=== PATIENT | female | born 1975 | race Caucasian/White ===

== ENCOUNTER 2017-09-09 12:12 | Day surgery (SDC) | payer OTHER ==
[2017-09-08 10:29] VITALS: BMI 20.3
[2017-09-09] MEDS ORDERED: Glycopyrrolate 0.2 MG/ML 5 ML SYRINGE ONE (13:11)
[2017-09-09] MEDS ORDERED: Lidocaine 1% PF 5 ML VIAL ONE (13:11)
[2017-09-09] MEDS ORDERED: Dexamethasone 20 MG/5 ML VIAL ONE (13:11)
[2017-09-09] MEDS ORDERED: PHENYLEPHRINE-NS 100 MCG/ML 10 ML SYRINGE ONE (13:11)
[2017-09-09] MEDS ORDERED: PROPOFOL 200 MG/20 ML VIAL ONE (13:11)
[2017-09-09] MEDS ORDERED: Ondansetron HCl/PF 4 MG/2 ML Vial ONE (13:11)
[2017-09-09] MEDS ORDERED: Ketorolac Tromethamine 30 MG/ML VIAL ONE (13:16)
[2017-09-09] MEDS ORDERED: Midazolam HCl 2 mg/2 ml Vial ONE (13:16)
[2017-09-09] MEDS ORDERED: Bupivacaine/Epinephrine 0.25% 30 ML VIAL ONE ×2 (13:17→15:00)
[2017-09-09 13:25] LABS: #Eosinphils 0.1 thou/uL (0.0-0.7); #Lymphocytes 1.5 thou/uL (1.20-3.40); #Monocytes 0.4 thou/uL (0.11-0.59); #Neutrophils 4.2 thou/uL (1.40-6.50); %Basophils 0.2 % (0.0-1.0); %Eosinophils 1.1 % (0.0-10.0); %Lymphocytes 24.1 % (21.0-51.0); %Neutrophils 67.7 % (42.0-75.0); Hemoglobin 14.8 g/dL (12.0-16.0); Mean Corpuscular HGB CONC 32.1 g/dL (32.0-36.0); Mean Corpuscular Hemoglobin 32.9 pg (27.0-31.0); Mean Platelet Volume 6.2 fL (7.4-10.4); Platelet Count 333 thou/uL (130-400); RBC Distribution Width 12.3 % (11.5-14.5); Red Blood Cell (RBC) Count 4.49 mill/uL (4.20-5.40); White Blood Cell (WBC) Count 6.2 thou/uL (4.8-10.8)
[2017-09-09] MEDS ORDERED: CEFAZOLIN/Water 2 GM/20 ML SYRINGE ONE (13:40)
[2017-09-09 13:43] LABS: Anion Gap 13 mmol/L (10-20); BUN (Urea Nitrogen) 18 mg/dL (7.0-18.7); Calc. Creatinine Clearance 100 mL/min (70-130); Calcium 9.7 mg/dL (7.8-10.44); Carbon Dioxide 27 mmol/L (22-29); Chloride 103 mmol/L (98-107); Estimated GFR-MDRD Greater than 90; Glucose 86 mg/dL (70-105); Potassium 4.6 mmol/L (3.5-5.1); Sodium 138 mmol/L (136-145)
[2017-09-09] MEDS ORDERED: Fentanyl 250 MCG/5 ML VIAL ONE (13:57)
[2017-09-09] MEDS ORDERED: Fentanyl 100 MCG/2 ML VIAL ONE ×2 (16:28→17:07)
[2017-09-09] MEDS ORDERED: Promethazine HCl 25 MG/ML VIAL ONE (16:44)
[2017-09-09] MEDS ORDERED: HYDROcodone/Acetaminophen 5/325 mg Tablet ONE (17:58)
--- NOTE | 2017-09-10 10:26 | OP ---
DATE OF PROCEDURE: 09/09/2017 PREOPERATIVE DIAGNOSIS: Incisional periumbilical ventral hernia. POSTOPERATIVE DIAGNOSIS: Incisional periumbilical ventral hernia. OPERATION PERFORMED: Laparoscopic repair of incisional periumbilical ventral hernia, utilizing an 8 cm Ventralex mesh patch. SURGEON: Michel Vidal M.D. ANESTHESIA: General endotracheal. INDICATIONS: The patient is a 41-year-old white female. She had previously had an umbilical hernia repaired with mesh. She then had a laparoscopic procedure, at which time an antrectomy with Kb-en- Y gastrojejunostomy was performed. She had noted several years after this that she developed a bulge just superior and to the right of her umbilicus at the site of her prior umbilical hernia repair. S he was taken to the operating room at this time for repair of this. It has become progressively pain ful recently. DESCRIPTION OF OPERATION: Informed consent was obtained. The patient was taken to the operating yaron m where general endotracheal anesthesia was obtained with the patient in supine position. Abdomen wa s prepped with ChloraPrep and draped in sterile fashion. Local anesthetic was infiltrated and a 5 mm left mid abdominal incision was created through which a Veress needle was passed into the peritoneal cavity and pneumoperitoneum established using carbon dioxide up to a pressure of 15 mmHg. A 5 mm tr ocar port was passed through this same incision. Laparoscopic camera was passed through this port. Under direct vision, 2 additional ports were placed including a 15 mm left upper quadrant port and a 5 mm left lower quadrant port. Attention was turned to the anterior abdominal wall. There were essentially no adhesions to the ante rior abdominal wall and the hernia was immediately visualized. There was mesh at this location. The hernia appeared to be towards the superior aspect of the mesh and the mesh was rolled up into the de fect. I initially performed a preperitoneal dissection, removing all of the surrounding fat from the underside of the fascia. I removed some of the mesh in doing so. The fascial edges were then caref ully defined. The defect was about 3 cm transversely x 2 cm vertically. This defect was marked exte rnally on the skin. Hemostasis was meticulous using electrocautery. The defect was closed percutaneously using 3 sutures of 0 Ethibond that were placed with a Yoana nee dle. With the tissue fully approximated, an 8 cm Ventralex mesh patch was obtained. Four quadrant s utures of 0 Ethibond were placed and the mesh was moistened and passed into the abdominal cavity. Th e 4 stay sutures were withdrawn through the anterior abdominal wall using a GraNee needle and each wa s secured so as to create a 4 quadrant transfascial fixation. There was excellent coverage over the defect. The patch was then secured around the circumference using the secure strap device. Several straps were placed along the internal aspect of the patch as well. The fascia at the left upper quadrant port site was closed with 0 Vicryl suture using a GraNee needle . There was more bleeding than typical from the mid abdominal port and this was also closed with an 0 Vicryl suture. All ports and instruments were removed under direct vision. Pneumoperitoneum was c arefully evacuated. Quarter percent Marcaine with epinephrine was infiltrated in each port site and skin edges approximated with 4-0 Monocryl subcuticular suture. Dermabond was placed externally. The re were no complications. The patient tolerated the procedure well and was taken to recovery room in stable condition.
== END 2017-09-09 18:20 | disposition home or self-care (01) ==
LOC: SDC 12:12
PROVIDERS: ATTEND Specialist
PROC: 0WUF4JZ Supplement Abdominal Wall with Synthetic Substitute, Percutaneous Endoscopic Approach (ICD-10-PCS; principal; 2017-09-09)
DX: K43.2 Incisional hernia without obstruction or gangrene (principal); G43.909 Migraine, unspecified, not intractable, without status migrainosus; D86.9 Sarcoidosis, unspecified; F41.8 Other specified anxiety disorders; M26.603 Bilateral temporomandibular joint disorder, unspecified; K21.9 Gastro-esophageal reflux disease without esophagitis; Z79.899 Other long term (current) drug therapy; Z88.0 Allergy status to penicillin; Z88.2 Allergy status to sulfonamides; Z91.048 Other nonmedicinal substance allergy status; Z98.0 Intestinal bypass and anastomosis status; Z97.5 Presence of (intrauterine) contraceptive device; Z90.89 Acquired absence of other organs; Z90.49 Acquired absence of other specified parts of digestive tract; Z98.890 Other specified postprocedural states; Z87.11 Personal history of peptic ulcer disease
CPT/HCPCS: 80048; 85025; 96374; C1781; J0131; J1100; J1885; J2001; J2250; J2405; J2550; J2704; J3010

== ENCOUNTER 2018-04-22 08:48 | Outpatient (CLI) | payer OTHER ==
[2018-04-22] MEDS ORDERED: ISOVUE-370 76%-LOCM 1 ML ONE (14:45)
== END 2018-04-22 08:49 | disposition home or self-care (01) ==
LOC: BICCT 08:48
PROVIDERS: ATTEND Internal Medicine Gastroenterology
DX: K91.89 Other postprocedural complications and disorders of digestive system (principal); R10.33 Periumbilical pain
CPT/HCPCS: 74177

== ENCOUNTER 2018-07-18 11:14 | Inpatient (IN) | payer OTHER ==
[2018-07-18] MEDS ORDERED: Ondansetron PF 4 MG/2 ML Vial ONE (13:06)
[2018-07-18] MEDS ORDERED: Pantoprazole 40 MG VIAL ONE (13:06)
[2018-07-18 13:23] LABS: #Eosinphils 0.1 thou/uL (0.0-0.7); #Lymphocytes 1.2 thou/uL (1.20-3.40); #Monocytes 0.5 thou/uL (0.11-0.59); #Neutrophils 3.4 thou/uL (1.40-6.50); %Basophils 0.3 % (0.0-1.0); %Eosinophils 1.3 % (0.0-10.0); %Lymphocytes 23.5 % (21.0-51.0); %Monocytes 9.9 % (0.0-10.0); %Neutrophils 64.9 % (42.0-75.0); Hemoglobin 17.3 g/dL (12.0-16.0); Mean Corpuscular HGB CONC 33.2 g/dL (32.0-36.0); Mean Corpuscular Hemoglobin 31.7 pg (27.0-31.0); Mean Corpuscular Volume 95.3 fL (78.0-98.0); Mean Platelet Volume 6.9 fL (7.4-10.4); Platelet Count 390 thou/uL (130-400); RBC Distribution Width 13.2 % (11.5-14.5); Red Blood Cell (RBC) Count 5.47 mill/uL (4.20-5.40); White Blood Cell (WBC) Count 5.3 thou/uL (4.8-10.8)
[2018-07-18 13:53] LABS: ALT (SGPT) 7 U/L (8-55); AST (SGOT) 11 U/L (5-34); Albumin 4.5 g/dL (3.5-5.0); Alkaline Phosphatase 98 U/L (40-150); Anion Gap 14 mmol/L (10-20); BUN (Urea Nitrogen) 25 mg/dL (7.0-18.7); Bilirubin, Total 0.3 mg/dL (0.2-1.2); Calc. Creatinine Clearance 0 mL/min (70-130); Calcium 9.9 mg/dL (7.8-10.44); Carbon Dioxide 32 mmol/L (22-29); Chloride 98 mmol/L (98-107); Estimated GFR-MDRD 74; Globulin 3.3 g/dL (2.4-3.5); Glucose 104 mg/dL (70-105); Lipase 13 U/L (8-78); Potassium 3.5 mmol/L (3.5-5.1); Protein, Total 7.8 g/dL (6.0-8.3); Sodium 140 mmol/L (136-145)
[2018-07-18 14:35] LABS: Bilirubin Small (Negative); Blood, Urine Negative (Negative); Glucose, Urine (Dipstick) Negative (Negative); Leukocyte Negative (Negative); Nitrite Negative (Negative); Protein, Urine (Dipstick) Negative (Neg-Trace); Urobilinogen 0.2 mg/dL (0.2-1.0); pH, Urine 6.5 (5.0-9.0)
[2018-07-18 14:38] LABS: Clarity Clear (Clear); Specific Gravity, Urine 1.022 (1.002-1.036)
[2018-07-18 14:40] LABS: Pregnancy Test - Urine (BHCG) Negative (Negative); Pregu Control Background? CLEAR/WHITE (CLR/WHITE); Pregu Control Bar Appear? YES (CONTROL BAR); Specific Gravity 1.022 (1.002-1.036)
[2018-07-18] MEDS ORDERED: Iopamidol 370 76% 100 ML VIAL ONE (15:05)
--- NOTE | 2018-07-18 15:34 | CT ---
CT ABDOMEN AND PELVIS WITH IV CONTRAST: HISTORY: Abdominal pain. Cramping. COMPARISON: 04/22/2018 FINDINGS: The lung bases are clear. The liver, spleen, kidneys, adrenal glands, and pancreas are unremarkable. There is a contraceptive device within the uterus. The urinary bladder is decompressed. Lack of oral contrast limits evaluation of the bowel. Postoperative changes of the stomach are again demonstrated. The stomach is now markedly distended and enlarged. It contains fluid, gas, and a sm all amount of particulate matter. It measures up to 9.3 cm in length. Follicles arise from the ovaries. IMPRESSION: Given the increasing distention of the enlarged stomach, gastric outlet obstruction must be of primar y concern. Other findings are stable. POS: TERI
[2018-07-18] MEDS ORDERED: Lidocaine Viscous Sol 2% 15 ml UD Cup ONE (17:49)
[2018-07-18] MEDS ORDERED: Benzocaine 20% Spray 60 ML CAN ONE (17:49)
[2018-07-18] MEDS ORDERED: Promethazine HCl 25 MG/ML VIAL ONE (18:41)
[2018-07-18] MEDS ORDERED: Morphine 2 MG/ML SYRINGE ONE (18:41)
[2018-07-18] MEDS ORDERED: Ondansetron PF 4 MG/2 ML Vial IVP PRN (19:50)
[2018-07-18] MEDS ORDERED: Ondansetron ODT 4 MG TAB SL PRN (19:50)
[2018-07-18] MEDS ORDERED: HYDROcodone/Acetaminophen 5/325 mg Tablet PO PRN ×2 (19:50)
[2018-07-18] MEDS ORDERED: Acetaminophen 325 MG TAB PO PRN (19:50)
[2018-07-18] MEDS: Sodium Chloride 0.9% 1,000 ML IV SCH (20:30)
[2018-07-18 20:52] VITALS: BMI 21.1
[2018-07-18] MEDS ORDERED: diphenhydrAMINE 50 MG/ML VIAL IVP SCH (21:30)
[2018-07-18] MEDS: Ketorolac Tromethamine 30 MG/ML VIAL IVP PRN (21:44)
--- NOTE | 2018-07-19 00:47 | CON ---
DATE OF CONSULTATION: 07/18/2018 CHIEF COMPLAINT: Nausea, vomiting, abdominal pain. HISTORY OF PRESENT ILLNESS: Ms. Puente is a 42-year-old woman who originally presented to GI clinic [facility] in 09/2013 with abdominal pain and nausea and vomiting. She underwent upper endoscopy at that [facility] that showed a pyloric ulcer and pyloric stenosis. Balloon dilation of the pyloric stenosis was pe rformed and she did well for several months after that; however, she presented again in 09/2014 with nausea and vomiting and gastric outlet obstruction. She underwent balloon dilation and then repeat b alloon dilation; however, at this point, the stricture was noted to be very long and a large amount o f retained vegetable matter in the stomach and the stricture tightened immediately back up after ball oon dilation such that even following serial dilation her stomach did not empty. She ultimately unde rwent antrectomy with Kb-en-Y gastrojejunostomy and vagotomy in 09/2014. I did not see her again a fter that until she came back to the office in 03/2018 with epigastric pain, nausea, and vomiting. I n the meantime, she had been diagnosed with an autoimmune disorder and was treated with steroids and Celebrex. She saw Dr. Jose Gonzales over in the [place]. She was changed to leflunomide and hydroxyc hloroquine for treatment of erythema nodosum and rheumatoid arthritis. Her symptoms significantly im proved with the change in her medications from the standpoint of joint pain and erythema nodosum. In the meantime, I performed EGD and colonoscopy in 04/13/2018. The upper endoscopy showed ulceration at the gastrojejunostomy that was inflamed and the scope could not be passed through it. Colonoscopy to the terminal ileum was normal. CT was done with contrast to better define the anatomy at the dusty stomosis and the contrast did pass through without problems. I performed follow up EGD on 05/09/2018 and again the gastric bypass was noted with a moderate size gastric pouch with food debris. There w as marked ulceration in the jejunum on the other side of the gastrojejunostomy. The site was strictu red, but the endoscope could be placed through to the more distal small bowel that appeared completel y normal. She was given again proton pump inhibitor with pantoprazole 40 mg twice daily. She was gi navi a trial of Carafate as well; however, she reports that the Carafate only made her feel worse. Vianca villegas came back to the clinic for followup and she was placed on a liquid diet. Gastrin level was checke d and was normal at less than 10. She does not smoke and has not been a smoker. She has been on no NSAIDs for months. She tested negative for H. pylori previously. Biopsies from the anastomosis show ed ulceration with no specific neoplastic process and no H. pylori and no clear inflammatory bowel di sease. Ms. Puente presented to the emergency room this afternoon with nausea and vomiting and left upper quad rant severe pulling or pressure type pain that radiates up towards her substernal region. This pain started on and has been persistent now and she has been unable to keep anything down orally. PAST MEDICAL HISTORY: 1. Chronic gastric ulcer, ultimately treated surgically, now with recurrent ulcer at the gastrojejun al anastomosis with gastric outlet obstruction. 2. Rheumatoid arthritis. 3. Erythema nodosum. 4. Hypothyroidism. PAST SURGICAL HISTORY: Appendectomy, hernia repair, antrectomy with vagotomy and gastrojejunostomy R oux-en-Y. ALLERGIES: SULFA, PENICILLIN, LATEX. FAMILY HISTORY: Negative for GI malignancy. SOCIAL HISTORY: Rare alcohol, no smoking, no drugs. MEDICATIONS: Prior to admission leflunomide, levothyroxine, pantoprazole 40 mg twice daily, hydroxyc hloroquine, escitalopram, occasional acetaminophen for pain but no NSAIDs. REVIEW OF SYSTEMS: Negative x10 systems reviewed except as stated in history of present illness. PHYSICAL EXAMINATION: GENERAL: She is in no acute distress, alert and oriented x3. HEENT: Eyes have no scleral icterus. OROPHARYNX: Clear, without lesions. NECK: No cervical or supraclavicular lymphadenopathy. NEUROLOGIC: Cranial nerves are grossly intact. LUNGS: Clear to auscultation bilaterally. HEART: Regular rate and rhythm without murmur. ABDOMEN: Soft, tender in the epigastric region without guarding. Bowel sounds are present. EXTREMITIES: No lower extremity edema. IMAGING: She had a CT scan of the abdomen and pelvis in the emergency room that showed a distended s tomach with evidence of gastric outlet obstruction. LABORATORY AND X-RAY FINDINGS: White blood cell count 5.3, hemoglobin is 17.3 up from baseline betwe en 14 and 12, platelets 390, creatinine 0.85, albumin 4.5. IMPRESSION: 1. Gastric outlet obstruction secondary to chronic ulcer at the gastrojejunal anastomosis. She prev iously had antrectomy with vagotomy and gastrojejunostomy with Kb-en-Y due to refractory pyloric ch halle ulcer with gastric outlet obstruction. She has tested negative for H. pylori. She has been of f NSAIDs. She does not smoke and has not been a smoker. Her gastrin level was normal. She presents now with severe dehydration and distended stomach consistent with gastric outlet obstruction. She h as failed to respond to twice daily high dose proton pump inhibitor and Carafate and liquid diet. At this point, I think she will require surgical revision of the gastrojejunostomy anastomosis. 2. History of rheumatoid arthritis and erythema nodosum. She is on leflunomide and hydroxychloroqui ne. Given the chronic ulcers that will not heal with no other source identified. Inflammatory bowel disease of the stomach and proximal small bowel is considered as a possibility. No obvious granulom as were reported by previous histopathology specimens. She had a recent colonoscopy to the terminal ileum which was normal. She has had no evidence of disease distal to the pylorus previously and now to the anastomosis. Certainly, she has an area high risk for anastomotic ulceration; however, still consider inflammatory bowel disease as a possibility. I will send an IBD diagnostic serology to look for other evidence of inflammatory bowel disease; however, this will not rule in or rule out Crohn's as a diagnosis. If she does have findings suggestive of inflammatory bowel disease by Serology; how ever, I would consider treating with an anti-TNF since she is already considered this for treatment o f her rheumatoid arthritis and erythema nodosum anyway. She did have a flare of joint pain just last week, even on her current immunosuppressive regimen. RECOMMENDATIONS: 1. Place NG tube. 2. IV fluids. 3. Consultation with General Surgery. I discussed her case with Dr. Vidal and after decompression of her stomach then the next step will likely be surgical revision of her gastrojejunostomy. 4. I will send serology for IBD diagnostic markers.
[2018-07-19] MEDS: Ketorolac Tromethamine 30 MG/ML VIAL IVP PRN (03:40)
[2018-07-19] MEDS: Sodium Chloride 0.9% 1,000 ML IV SCH (04:00)
[2018-07-19] MEDS ORDERED: Acetaminophen 650 MG Suppository PR PRN (08:21)
[2018-07-19] MEDS ORDERED: Bisacodyl 10 MG SUPP PR PRN (08:21)
[2018-07-19] MEDS ORDERED: hydrALAZINE 20 MG/ML VIAL SLOW IVP PRN (08:23)
[2018-07-19] MEDS ORDERED: Cepastat Lozenges 1 LOZ PO PRN (08:23)
[2018-07-19] MEDS ORDERED: Artificial Tears 18 DROP/0.9 ML EA EYE PRN (08:23)
[2018-07-19] MEDS ORDERED: Eucerin (Mineral Oil/Petrolatum,White) 30 gm Jar TOP PRN (08:23)
[2018-07-19] MEDS ORDERED: Sodium Chloride 0.65% Nasal 44 ML BOT EA NARE PRN (08:23)
[2018-07-19] MEDS ORDERED: Pantoprazole 40 MG VIAL IVP SCH (09:00)
[2018-07-19] MEDS: Acetaminophen 650 MG in Premix Bag 1 BAG IVPB PRN ×3 (09:07→21:51)
--- NOTE | 2018-07-19 09:47 | RAD ---
ABDOMEN ONE VIEW: History: 42-year-old female with history of follow up gastric outlet obstruction. FINDINGS: Extensive post-operative changes are noted. There is some gas within a somewhat dilated stomach. An N G tube has been placed. The tip extends into the stomach. The sidehole is at the GE junction region a nd this could be advanced somewhat to completely allow the sidehole to enter the stomach. There is le ss distention than on the CT of 07-18-18. IMPRESSION: NG tube in place with some persistent dilatation and distention of the stomach, the sidehole is at th e GE junction region and the NG tube could be advanced so that it more completely enters the stomach. Extensive post-operative changes. Continue short term follow up. POS: TERI
[2018-07-19] MEDS: D5 1/2 NS w/20 mEq KCL 1,000 ML IV SCH ×3 (10:35→22:51)
--- NOTE | 2018-07-19 11:17 | HP ---
PRIMARY CARE PHYSICIAN: Dr. Edvin Frausto. REASON FOR ADMISSION: Abdominal pain and gastric outlet obstruction. HISTORY OF PRESENT ILLNESS: This is a 42-year-old female, who has a previous history of gastric bypa ss surgery with Kb-en-Y; operation was done by Dr. Vidal about 5 years ago. Subsequently, her co astere was complicated one time with gastric outlet obstruction, required surgery. Patient has a long history of nausea, vomiting, abdominal pain for about 6 months, but initially symptoms were intermitt ent and patient was trying to manage with dietary modification. For the last 3 weeks, patient's symp toms have gradually progressed and she was instructed to be on clear liquid diet, and now a days even with liquid diet patient is getting abdominal pain, which is epigastric in location, 5/10 in intensi ty, associated with acid reflux as well as nausea and sometimes vomiting. Patient has lost almost 30 pounds weight over the last several years and 12 pound in the last 3 weeks. She denies any melena o r hematochezia. She denies any fever or chills. She denies any UTI symptoms. She denies any headac he or dizziness, but she is feeling weak and exhausted. With this presentation, she came to emergency room yesterday and she had CT abdomen and pelvis, which showed gastric distention and gastric outlet obstruction was a concern. This patient was already ev aluated by Dr. Magana as well as Dr. Vidal and they recommended to put her NG tube and keep her n.p. o. with a clear ice chips only. Overnight, the patient did well. She still has some nausea and some vague discomfort in her epigastric region. She denies any chest pain. She denies any shortness of breath. PAST MEDICAL HISTORY: Chronic gastric ulcer, treated with surgery with gastric bypass and Kb-en-Y; history of gastrojejunal anastomosis with a gastric outlet obstruction, required surgery; rheumatoid arthritis; erythema nodosum; hypothyroidism; migraine. PAST SURGICAL HISTORY: Appendicectomy, hernia repair, antrectomy with vagotomy and gastrojejunostomy with Kb-en-Y, tonsillectomy, bladder sling repair, bunionectomy. PAST PSYCHIATRIC HISTORY: Anxiety and depression. ALLERGIES: SULFA DRUGS, PENICILLIN, and LATEX. FAMILY HISTORY: Patient denies any family history of coronary artery disease, stroke, or cancer. SOCIAL HISTORY: Patient is and lives at home with her . No history of tobacco, alcoh ol, or illicit drug abuse. MEDICATIONS: Lexapro 20 mg p.o. daily, Plaquenil 200 mg p.o. at bedtime, leflunomide 10 mg as direct ed, levothyroxine 25 mcg p.o. daily, Protonix 40 mg p.o. b.i.d., Carafate a.c. and at bedtime. REVIEW OF SYSTEMS: The following complete review of systems was negative, unless otherwise mentioned in the HPI or below: Constitutional: Weight loss or gain, ability to conduct usual activities. Sk in: Rash, itching. Eyes: Double vision, pain. ENT/Mouth: Nose bleeding, neck stiffness, pain, te nderness. Cardiovascular: Palpitations, dyspnea on exertion, orthopnea. Respiratory: Shortness of breath, wheezing, cough, hemoptysis, fever, or night sweats. Gastrointestinal: Poor appetite, abdo omega pain, heartburn, nausea, vomiting, constipation, or diarrhea. Genitourinary: Urgency, frequen cy, dysuria, nocturia. Musculoskeletal: Pain, swelling. Neurologic/Psychiatric: Anxiety, depressi on. Allergy/Immunologic: Skin rash, bleeding tendency. Please see my HPI for pertinent positive an d negative. All other review of systems reviewed and negative except as mentioned in the HPI. EMERGENCY ROOM COURSE: Patient was treated with morphine, Phenergan, and IV fluid, Zofran, and Elsy nix. PHYSICAL EXAMINATION: VITAL SIGNS: On arrival, blood pressure 108/88, pulse 122, respiratory rate of 17, temperature 98.8, saturation 98% on room air. GENERAL: Patient is currently alert, awake, in no obvious acute distress. HEENT: Head: Normocephalic, atraumatic. Eyes: Pupils round, reactive to light. Extraocular muscl e intact. ENT: Oropharynx within normal limits. Moist mucous membranes, no oral lesion. No pharyn geal erythema, no exudate. She has NG tube in place with low intermittent suction. NECK: Supple, no JVD, no thyromegaly, no carotid bruit. LUNGS: Clear to auscultation without any rhonchi or rales. CARDIAC: S1 and S2 regular, tachycardia, no murmur, no gallop, no rub. ABDOMEN: Soft. Epigastric discomfort noted. No peritoneal sign, no guarding, no rigidity, no rebou nd. BACK EXAMINATION: Unremarkable, no CVA tenderness. EXTREMITIES: Upper extremities, passive movement of all joints are normal. Lower extremities, no ed haylee. Good distal pulsation, no calf tenderness. SKIN: No skin rash. HEMATOLOGICAL SYSTEM: No lymphadenopathy. PSYCHIATRIC: Normal affect. NEUROLOGIC: Nonfocal examination. SIGNIFICANT LABORATORY DATA: EKG showing sinus tachycardia. CBC: WBC 5.3, hemoglobin 17.3, platele ts 390. BMP: Sodium 140, potassium 3.5, chloride 98, carbon dioxide 32, anion gap 14, BUN 25, creat inine 0.85, glucose 104, calcium 9.9. LFTs: AST 11, ALT 7, alkaline phosphatase 98, albumin 4.5, li pase 13. Urinalysis unremarkable. test negative. CT of the abdomen and pelvis consistent with a gastric outlet obstruction and gastric distention. X-ray abdomen showing NG tube in place. ASSESSMENT AND PLAN: 1. Nausea, vomiting, abdominal pain in epigastric region due to gastric outlet obstruction. 2. Dehydration. 3. Metabolic alkalosis due to recurrent nausea and vomiting. 4. Anxiety and depression. 5. Rheumatoid arthritis. 6. Hypothyroidism. 7. History of chronic peptic ulcer disease, required a gastrojejunostomy with Kb-en-Y surgery. PLAN: Admission to medical floor. Gastroenterology consult and general surgery consult. We will co ntinue with Protonix 40 mg IV b.i.d. We will continue with dextrose with half normal saline NS at 12 5 mL per hour for hydration. Deep venous thrombosis prophylaxis with Lovenox 40 mg subcutaneously da vineet. Gastrointestinal prophylaxis with Protonix. CODE STATUS: The patient is FULL CODE. Patient's is surrogate decision maker. Disposition plan based on clinical course and career consultant recommendation. At this point, the patient has NG tube with low intermittent suction on ice chips only. Depending up on clinical course, we will advance diet. She may need a surgical evaluation versus endoscopic evalu ation. The patient will stay in hospital more than 2 midnights. Plan of care discussed with the patient in detail.
[2018-07-19] MEDS: Enoxaparin Sodium 40 MG/0.4 ML SYRINGE SC SCH (11:49)
[2018-07-19] MEDS ORDERED: Morphine 2 MG/ML SYRINGE SLOW IVP PRN (12:02)
[2018-07-19] MEDS: Morphine 2 MG/ML SYRINGE SLOW IVP PRN ×2 (12:08→17:52)
[2018-07-19 18:08] LABS: Bilirubin Negative (Negative); Blood, Urine Negative (Negative); Clarity CLEAR (Clear); Glucose, Urine (Dipstick) Negative (Negative); Leukocyte Negative (Negative); Nitrite Negative (Negative); Protein, Urine (Dipstick) Negative (Neg-Trace); Urobilinogen 0.2 mg/dL (0.2-1.0); pH, Urine 5.5 (5.0-9.0)
[2018-07-19 18:10] LABS: Bacteria/HPF None Seen HPF (None Seen); Hyaline Casts/LPF 0-3 HYALINE CAST LPF (0-3 Hyaline); Pathc Cast-AUWi Flag 0.14 (0-2.49); RBC/HPF 0-3 HPF (0-3); WBC/HPF 0-3 HPF (0-3)
[2018-07-19] MEDS: Pantoprazole 40 MG VIAL IVP SCH (20:33)
[2018-07-19] MEDS ORDERED: diphenhydrAMINE 50 MG/ML VIAL IVP SCH (21:30)
[2018-07-19] MEDS: Ondansetron PF 4 MG/2 ML Vial IVP PRN (22:49)
--- NOTE | 2018-07-20 01:07 | PRG ---
DATE OF SERVICE: 07/19/2018 SUBJECTIVE: Kwame feels better after having the NG tube decompress her stomach. She had a large vol ume of fluid removed immediately upon placement. Now, she is uncomfortable with the NG tube, but she has no abdominal pain currently. She has been taking Tylenol IV and morphine for pain in general. OBJECTIVE: VITAL SIGNS: Temperature 99.1, pulse 92, blood pressure 124/61. GENERAL: She is in no acute distress. She does appear uncomfortable with NG tube in place. LUNGS: Clear to auscultation bilaterally. HEART: Regular rate and rhythm. ABDOMEN: Soft, nontender, nondistended. Bowel sounds are present. EXTREMITIES: No lower extremity edema. IMPRESSION: Gastric outlet obstruction secondary to peptic ulcer at the gastrojejunostomy anastomosi s, but more so on the small bowel side of the anastomosis. RECOMMENDATIONS: 1. She has an NG tube in place to low intermittent suction. 2. Plan is for surgical revision of the anastomosis on .
--- NOTE | 2018-07-20 02:11 | CON ---
DATE OF CONSULTATION: 07/19/2018 CHIEF COMPLAINT: Gastric outlet obstruction with nausea and vomiting. HISTORY OF PRESENT ILLNESS: The patient is a 42-year-old pleasant white female. In 09/2014, I perfo rmed a laparoscopic distal gastrectomy with Kb-en-Y gastrojejunostomy. I also performed a truncal vagotomy at that time. She had gastric outlet obstruction secondary to pyloric scarring from peptic ulcer disease. She did well after the surgery and has had no subsequent gastric problems for couple of years. She had a flare up of an autoimmune disease for which she was placed on significant doses of steroids and nonsteroidal medications. At that point, she began having recurrent problems with he r stomach. She and her note that over the past 6 months that she has had intermittent proble ms with nausea, vomiting, and abdominal pain. She has undergone few endoscopies per Dr. Magana. She is noted to have recurrent problems with ulceration, stenosis at her gastrojejunostomy. Gastrin leve ls were checked and found to be essentially normal. She presented to the emergency room yesterday with worsened problems with pain and nausea and vomitin g. She and her both note that her quality of life over the past several months has been very poor. CT scan obtained in the emergency room document, substantial gastric distention with no other intra-abdominal abnormality. PAST MEDICAL HISTORY: 1. History of gastric outlet obstruction. 2. Rheumatoid arthritis. 3. Erythema nodosum. 4. Hypothyroidism. 5. History of migraine headaches. PAST SURGICAL HISTORY: 1. Appendectomy. 2. Umbilical hernia repair 3. Antrectomy with vagotomy and gastrojejunostomy in 2014. 4. Tonsillectomy. 5. Bladder sling repair. 6. Bunionectomy. 7. Laparoscopic ventral hernia repair that I performed last year. ALLERGIES: SULFA DRUGS, PENICILLIN, LATEX. PERSONAL AND SOCIAL HISTORY: She is with 2 children. She is a teacher. She lives in [facility]. She denies tobacco or alcohol use. MEDICATIONS: Lexapro, Plaquenil, leflunomide, levothyroxine, Protonix, Carafate. REVIEW OF SYSTEMS: Otherwise, unremarkable. FAMILY HISTORY: Noncontributory. PHYSICAL EXAMINATION: VITAL SIGNS: She is afebrile with tachycardia upon arrival with a heart rate of 122. Her tachycardi a is largely resolved with heart rate in the 80s. Blood pressure is within normal limits. GENERAL: She is a well-developed, well-nourished, thin white female resting in bed in no acute distr ess. She is alert and oriented x3. HEAD, EYES, EARS, NOSE AND THROAT: Unremarkable. NECK: Supple, without mass or tenderness. LUNGS: Clear to auscultation throughout. CARDIAC: Regular rate and rhythm without murmur. ABDOMEN: Soft, nontender, nondistended with well healed incisions from prior surgery. EXTREMITIES: Unremarkable. LABORATORY DATA: CBC reveals white blood cell count of 5.3, hemoglobin of 17.3. Chemistry profile r eveals no significant electrolyte abnormality. Her CO2 is little elevated at 32, BUN and creatinine are normal. Albumin level is 4.5. ASSESSMENT: The patient with substantial gastric outlet obstruction with a very distended stomach. At last surgery, her stomach was very thickened secondary to the chronic obstruction. For now, there fore, recommend placement of nasogastric tube allow the stomach to decompress for about [address] 48 hours of decompression, I believe her stomach will be well suited to repeat operation. I will plan on revising her gastrojejunostomy laparoscopic cholecystectomy. I discussed this operation wit h the patient and her . They understand and agree to proceed with surgery.
[2018-07-20 05:59] LABS: #Eosinphils 0.2 thou/uL (0.0-0.7); #Monocytes 0.5 thou/uL (0.11-0.59); %Basophils 0.6 % (0.0-1.0); %Eosinophils 3.5 % (0.0-10.0); %Lymphocytes 17.7 % (21.0-51.0); %Monocytes 8.9 % (0.0-10.0); %Neutrophils 69.4 % (42.0-75.0); Hemoglobin 12.5 g/dL (12.0-16.0); Mean Corpuscular HGB CONC 31.9 g/dL (32.0-36.0); Mean Corpuscular Hemoglobin 30.8 pg (27.0-31.0); Mean Corpuscular Volume 96.4 fL (78.0-98.0); Mean Platelet Volume 6.8 fL (7.4-10.4); Platelet Count 277 thou/uL (130-400); RBC Distribution Width 12.9 % (11.5-14.5); Red Blood Cell (RBC) Count 4.07 mill/uL (4.20-5.40); White Blood Cell (WBC) Count 5.7 thou/uL (4.8-10.8)
[2018-07-20] MEDS: D5 1/2 NS w/20 mEq KCL 1,000 ML IV SCH ×3 (06:04→20:12)
[2018-07-20 07:10] LABS: ALT (SGPT) Less than 7 U/L (8-55); AST (SGOT) 11 U/L (5-34); Albumin 3.2 g/dL (3.5-5.0); Alkaline Phosphatase 68 U/L (40-150); Anion Gap 9 mmol/L (10-20); BUN (Urea Nitrogen) 11 mg/dL (7.0-18.7); Bilirubin, Total 0.3 mg/dL (0.2-1.2); Calc. Creatinine Clearance 101 mL/min (70-130); Calcium 8.4 mg/dL (7.8-10.44); Carbon Dioxide 23 mmol/L (22-29); Chloride 108 mmol/L (98-107); Estimated GFR-MDRD Greater than 90; Globulin 2.3 g/dL (2.4-3.5); Glucose 107 mg/dL (70-105); Potassium 3.7 mmol/L (3.5-5.1); Protein, Total 5.5 g/dL (6.0-8.3); Sodium 136 mmol/L (136-145)
[2018-07-20] MEDS ORDERED: Lidocaine 2% Jelly 5 ML TUBE TOP SCH (09:00)
[2018-07-20] MEDS: Enoxaparin Sodium 40 MG/0.4 ML SYRINGE SC SCH (09:40)
--- NOTE | 2018-07-20 10:07 | PDOC.PN ---
- Subjective Encounter Start Date: 07/20/18 Encounter Start Time: 08:30 Patient seen and examined. No new complaints. No overnight events today NG tube came out - Objective Resuscitation Status: Resuscitation Status FULL:Full Resuscitation MAR Reviewed: Yes Vital Signs & Weight: Vital Signs (12 hours) Temp Pulse Resp BP Pulse Ox 07/20/18 08:48 98.1 F 95 16 109/63 99 07/20/18 05:00 98.3 F 84 18 121/68 07/20/18 00:59 98.1 F 87 18 105/58 L Weight Admit Weight 126 lb 12.253 oz Weight 126 lb 12.253 oz I&O: 07/19/18 07/20/18 07/21/18 06:59 06:59 06:59 Intake Total 1192 1228 Output Total 375 1200 Balance 817 28 Result Diagrams: 07/20/18 05:31 07/20/18 05:31 Phys Exam - Physical Examination Constitutional: NAD HEENT: PERRLA, moist MMs, sclera anicteric Neck: no JVD, supple Respiratory: no wheezing, no rales, no rhonchi Cardiovascular: RRR, no significant murmur, no rub Gastrointestinal: soft, no distention, positive bowel sounds epigastric discomfort Musculoskeletal: no edema, pulses present Neurological: non-focal, normal sensation, moves all 4 limbs Psychiatric: normal affect, A&O x 3 Skin: no rash, normal turgor Dx/Plan (1) Dehydration Code(s): E86.0 - DEHYDRATION Status: Acute (2) Epigastric abdominal pain Code(s): R10.13 - EPIGASTRIC PAIN Status: Acute (3) Gastric distention Code(s): K31.89 - OTHER DISEASES OF STOMACH AND DUODENUM Status: Acute (4) Gastric outlet obstruction Code(s): K31.1 - ADULT HYPERTROPHIC PYLORIC STENOSIS Status: Acute (5) Metabolic alkalosis Code(s): E87.3 - ALKALOSIS Status: Acute (6) Nausea & vomiting Code(s): R11.2 - NAUSEA WITH VOMITING, UNSPECIFIED Status: Acute (7) Anxiety and depression Code(s): F41.9 - ANXIETY DISORDER, UNSPECIFIED; F32.9 - MAJOR DEPRESSIVE DISORDER, SINGLE EPISODE, UNSPECIFIED Status: Chronic (8) Chronic low back pain Code(s): M54.5 - LOW BACK PAIN; G89.29 - OTHER CHRONIC PAIN Status: Chronic (9) H/O gastric bypass Code(s): Z98.84 - BARIATRIC SURGERY STATUS Status: Chronic (10) H/O peptic ulcer Code(s): Z87.11 - PERSONAL HISTORY OF PEPTIC ULCER DISEASE Status: Chronic (11) Hypothyroidism Code(s): E03.9 - HYPOTHYROIDISM, UNSPECIFIED Status: Chronic (12) Rheumatoid arthritis Code(s): M06.9 - RHEUMATOID ARTHRITIS, UNSPECIFIED Status: Chronic - Plan cont current plan of care * she will need repeat NG tube placement and then LIS * tomorrow she is planned for surgery * continue IVF * medication reviewed as below * symptomatic treatment. Review of Systems - Review of Systems ENT: negative: Ear Pain, Ear Discharge, Nose Pain, Nose Discharge, Nose Congestion, Mouth Pain, Mouth Swelling, Throat Pain, Throat Swelling, Other Respiratory: negative: Cough, Dry, Shortness of Breath, Hemoptysis, SOB with Excertion, Pleuritic Pain, Sputum, Wheezing Cardiovascular: negative: chest pain, palpitations, orthopnea, paroxysmal nocturnal dyspnea, edema, light headedness, other Gastrointestinal: Nausea, Abdominal Pain. negative: Vomiting, Diarrhea, Constipation, Melena, Hematochezia, Other Genitourinary: negative: Dysuria, Frequency, Incontinence, Hematuria, Retention , Other Musculoskeletal: negative: Neck Pain, Shoulder Pain, Arm Pain, Back Pain, Hand Pain, Leg Pain, Foot Pain, Other Skin: negative: Rash, Lesions, Jez, Bruising, Other - Medications/Allergies Allergies/Adverse Reactions: Allergies Allergy/AdvReac Type Severity Reaction Status Date / Time adhesive tape Allergy Verified 09/08/17 10:32 Penicillins Allergy Verified 09/08/17 10:32 Sulfa (Sulfonamide Allergy Verified 09/08/17 10:32 Antibiotics) Medications: Current Medications Acetaminophen (Tylenol) 650 mg NM Q4H PRN PRN Reason: Headache/Fever/Mild Pain (1-3) Artificial Tears (Tears Naturale) 2 drop EA EYE PRN PRN PRN Reason: Dry Eyes Bisacodyl (Dulcolax) 10 mg [place] DAILYPRN PRN PRN Reason: Constipation Enoxaparin Sodium (Lovenox) 40 mg SC 0900 [facility] Last Admin: 07/19/18 11:49 Dose: 40 mg Hydralazine HCl (Apresoline) 10 mg SLOW IVP Q4H PRN PRN Reason: SBP Greater Than 170 Potassium Chloride/Dextrose/Sod Cl (D5 1/2 Ns W/20 Meq Kcl) 1,000 mls @ 125 mls /hr IV .Q8H [facility] Last Admin: 07/20/18 06:04 Dose: 1,000 mls Acetaminophen 650 mg/ Device 65 mls @ 260 mls/hr IVPB Q6H PRN PRN Reason: Fever/Mild Pain Stop: 07/20/18 22:56 Mineral Oil/White Petrolatum (Eucerin Cream) 0 gm TOP BIDPRN PRN PRN Reason: Dry Skin Morphine Sulfate (Morphine) 2 mg SLOW IVP Q4H PRN PRN Reason: Moderate Pain (4-6) Last Admin: 07/19/18 17:52 Dose: 2 mg Ondansetron HCl (Zofran) 4 mg IVP Q6H PRN PRN Reason: Nausea/Vomiting Last Admin: 07/19/18 22:49 Dose: 4 mg Pantoprazole Sodium (Protonix) 40 mg IVP Q12HR [facility] Last Admin: 07/19/18 20:33 Dose: 40 mg Sodium Chloride (Flush - Normal Saline) 10 ml IVF Q12HR [facility] Last Admin: 07/19/18 20:33 Dose: 10 ml Sodium Chloride (Flush - Normal Saline) 10 ml IVF PRN PRN PRN Reason: Saline Flush Sodium Chloride ([place] Nasal [place] 0.65%) 0 ml EA NARE QIDPRN PRN PRN Reason: Nasal Congestion Throat Lozenges (Cepastat Lozenges) 1 zaida PO Q2H PRN PRN Reason: Sore Throat
[2018-07-20] MEDS: Pantoprazole 40 MG VIAL IVP SCH ×2 (10:17→20:12)
[2018-07-20] MEDS ORDERED: Benzocaine 20% Spray 60 ML CAN PO SCH (11:00)
--- NOTE | 2018-07-20 11:40 | PQF ---
MONO MCCRAY, NORRIS PLUMMER MD [id number] [address] [place] [address] [id number] CLINICAL DOCUMENTATION IMPROVEMENT CLARIFICATION FORM: ICD-10 Updated PLEASE DO AN ADDENDUM TO THE PROGRESS NOTE WITH ANY DOCUMENTATION UPDATES OR ADDITIONS AND CARRY THROUGH TO DC SUMMARY. THANK YOU. Date: 07-20-18 ATTN: DR. TORIBIO Please exercise your independent, professional judgment in responding to the clarification form. Clinical indicators are provided on the bottom of this form for your review Please check appropriate box(s): [ X ] Protein Calorie Malnutrition: [ X ] Mild [ ] Moderate [ ] Other Malnutrition (please specify) __ [ ] Underweight without malnutrition [ ] Other diagnosis [ ] Unable to determine CLINICAL INDICATORS - SIGNS / SYMPTOMS / LABS BMI 21.1 H&P (MALU): LOST ALMOST 30 LBS OVER THE LAST SEVERAL YEARS AND 12 LBS IN THE LAST 3 WEEKS LONG HX OF NAUSEA, VOMITING, ABD PAIN FOR 6 MONTHS 07-19 DIETARY CONSULT: GASTRIC OUTLET OBSTRUCTION patient following a clear liquid diet x2 weeks EXCELLENCE CONSULTANT, no PO intake x5 days, 9% weight loss in 2 weeks RISK FACTORS H&P (MALU): HX GASTRIC BYPASS SURGERY W/ YASMINE-EN-Y GASTRIC OUTLET OBSTRUCTION LONG HX OF NAUSEA, VOMITING, ABD PAIN FOR 6 MONTHS TREATMENT: 07-19 DIETARY CONSULT: 1. Continue NPO status 2. Recommend initiating a custom TPN of D30 (850 mL) + AA15 (400 mL) + 20% Lipids (200 mL), infusing entire bag over 24 hours 3. D/C D5 once TPN is at goal 4. Increase AA15 to 575 mL after surgery 4. When medically appropriate, recommend a ADAT to a Fiber Restricted diet Moderate Malnutrition (in acute illness) Energy Intake: <75% of estimated energy requirement for > 7 days Weight Loss: 1-2%/1 week; 5%/ 1 month; 7.5%/3 months Other: mild body fat loss; mild muscle mass loss; mild fluid accumulation; Severe Malnutrition (in acute illness) Energy Intake: < 50% of estimated energy requirement for > 5 days Weight Loss: >1-2%/1 week; >5%/1 month; >7.5%/3 months Other: moderate body fat loss; moderate muscle mass loss; moderate- severe fluid accumulation; measurably reduced cupola operator strength Moderate Malnutrition (in chronic illness) Energy Intake: <75% of estimated energy requirement for >1 month Weight Loss: 5%/1 month; 7.5%/3 months; 10%/6 months; 20%/1 year Other: mild body fat loss; mild muscle mass loss; mild fluid accumulation Severe Malnutrition (in chronic illness) Energy Intake: <75% of estimated energy requirement for >1 month Weight Loss: >5%/1 month; >7.5%/3 months; >10%/6 months; >20%/1 year Other: severe body fat loss; severe muscle mass loss; severe fluid accumulation ; measurably reduced cupola operator strength THANK YOU, ZENAIDA (This form is maintained as a part of the permanent medical record) 2014 [employer]. All Rights Reserved Zenaida Brown RN, BS [email or web address] [facility]
[2018-07-20] MEDS: Morphine 2 MG/ML SYRINGE SLOW IVP PRN ×4 (12:00→23:09)
[2018-07-20] MEDS: Acetaminophen 650 MG in Premix Bag 1 BAG IVPB PRN ×2 (12:18→18:40)
[2018-07-20] MEDS: Ondansetron PF 4 MG/2 ML Vial IVP PRN (12:25)
[2018-07-20 12:35] LABS: Ref Lab Test Ordered IBD; Reference Lab Name PROMETHEUS
--- NOTE | 2018-07-20 19:06 | PRG ---
DATE OF SERVICE: 07/20/2018 SUBJECTIVE: Ms. Puente is uncomfortable from her NG tube. She did have a few 100 mL out from her NG tube, but most of this was fluid used to flush the tube. She has not had ongoing pain in her abdomen or vomiting with the tube in place. OBJECTIVE: VITAL SIGNS: Temperature 98.3, pulse 89, blood pressure 143/87. GENERAL: She is in no acute distress. She is awake and alert. LUNGS: Clear to auscultation bilaterally. HEART: Regular rate and rhythm. ABDOMEN: Soft, nontender, nondistended. Bowel sounds are present. EXTREMITIES: No lower extremity edema. IMPRESSION: 1. 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 2. Severe dehydration, improved with fluids. Her hemoglobin has decreased from 17.3-12.5. PLAN: 1. She remains on NG suction and we will proceed with surgical revision of her anastomosis tomorrow by Dr. Vidal. 2. [email or web address] were sent and are pending. She does have a history of erythema no dosum and rheumatoid arthritis and has been on immunosuppression for that. If the genetic and antibi otic markers came back suggestive of a higher probability of Crohn's, then I would treat her with a b iologic.
--- NOTE | 2018-07-20 19:19 | RAD ---
AP ABDOMINAL RADIOGRAPH 07/20/18 HISTORY: Evaluate nasogastric tube placement. COMPARISON: 07/19/18. FINDINGS: There has been interval placement of a nasogastric tube with tip overlying the expected location of t he proximal body of the stomach. Radiopaque suture material and surgical clips again overlie the left abdomen. Bowel gas pattern is nonspecific. The visualized lung bases are clear. No other interval ch nara from prior study. The lower pelvis is not imaged. No other interval change. IMPRESSION: 1. Interval placement of nasogastric tube with tip overlying the expected location of the proxim al body of the stomach. 2. Postsurgical changes of the abdomen. POS: JOSIAHC
[2018-07-20] MEDS: Oxymetazoline HCl 0.05% ( 15 ML ) NASAL SCH (20:12)
[2018-07-20] MEDS ORDERED: diphenhydrAMINE 50 MG/ML VIAL IVP PRN (23:32)
[2018-07-20] MEDS ORDERED: Acetaminophen 650 MG in Premix Bag 1 BAG IVPB PRN (23:35)
[2018-07-21] MEDS: D5 1/2 NS w/20 mEq KCL 1,000 ML IV SCH ×2 (00:48→08:22)
[2018-07-21] MEDS: Morphine 2 MG/ML SYRINGE SLOW IVP PRN ×4 (02:06→10:14)
[2018-07-21 06:00] LABS: Band 3 % (5-11); Eosinophils 4 % (0-10); Hemoglobin 14.1 g/dL (12.0-16.0); Lymphocytes 24 % (21-51); MDiff Complete? YES; Mean Corpuscular HGB CONC 32.4 g/dL (32.0-36.0); Mean Corpuscular Hemoglobin 31.2 pg (27.0-31.0); Mean Corpuscular Volume 96.2 fL (78.0-98.0); Mean Platelet Volume 7.2 fL (7.4-10.4); Monocytes 8 % (0-10); Neutrophil 54 % (42-75); PLT Morphology Comment Appears Adequate; Platelet Count 295 thou/uL (130-400); RBC Morphology Normal; Reactive Lymphocytes 7 % (0-10); Red Blood Cell (RBC) Count 4.52 mill/uL (4.20-5.40); White Blood Cell (WBC) Count 4.8 thou/uL (4.8-10.8)
[2018-07-21] MEDS ORDERED: Ketorolac Tromethamine 30 MG/ML VIAL IVP SCH (06:00)
[2018-07-21] MEDS ORDERED: Acetaminophen 1,000 MG in Premix Bag 1 BAG IVPB SCH (06:00)
[2018-07-21] MEDS ORDERED: cefOXitin 2 GM in Sodium Chloride 0.9% 100 ML IVPB SCH (06:00)
[2018-07-21 06:22] LABS: Anion Gap 9 mmol/L (10-20); BUN (Urea Nitrogen) Less than 4 mg/dL (7.0-18.7); Calc. Creatinine Clearance 97 mL/min (70-130); Calcium 8.8 mg/dL (7.8-10.44); Carbon Dioxide 26 mmol/L (22-29); Chloride 106 mmol/L (98-107); Estimated GFR-MDRD Greater than 90; Glucose 102 mg/dL (70-105); Potassium 3.7 mmol/L (3.5-5.1); Sodium 137 mmol/L (136-145)
[2018-07-21] MEDS: Pantoprazole 40 MG VIAL IVP SCH ×2 (08:12→21:50)
[2018-07-21] MEDS ORDERED: PHENYLEPHRINE-NS 100 MCG/ML 10 ML SYRINGE ONE (09:47)
[2018-07-21] MEDS ORDERED: Lidocaine 1% PF 5 ML VIAL ONE (09:47)
[2018-07-21] MEDS ORDERED: Succinylcholine Chloride 20 MG/ML 10 ml SYRINGE FS ONE (09:47)
[2018-07-21] MEDS ORDERED: Esmolol 100 MG/10 ML VIAL ONE (09:47)
[2018-07-21] MEDS ORDERED: PROPOFOL 200 MG/20 ML VIAL ONE (09:47)
[2018-07-21] MEDS ORDERED: Dexamethasone 20 MG/5 ML VIAL ONE (09:47)
--- NOTE | 2018-07-21 09:55 | PDOC.PN ---
- Subjective Encounter Start Date: 07/21/18 Encounter Start Time: 07:35 Patient seen and examined. No new complaints. No overnight events - Objective Resuscitation Status: Resuscitation Status FULL:Full Resuscitation MAR Reviewed: Yes Vital Signs & Weight: Vital Signs (12 hours) Temp Pulse Resp BP Pulse Ox 07/21/18 07:19 97.5 F L 76 18 134/83 100 07/21/18 04:05 97.5 F L 74 19 130/86 98 07/21/18 01:04 97.6 F 82 22 H 146/93 H 97 Weight Admit Weight 126 lb 12.253 oz Weight 126 lb 12.253 oz I&O: 07/20/18 07/21/18 07/22/18 06:59 06:59 06:59 Intake Total 1228 1660 Output Total 1200 560 Balance 28 1100 Result Diagrams: 07/21/18 04:59 07/21/18 04:59 Phys Exam - Physical Examination Constitutional: NAD HEENT: PERRLA, moist MMs, sclera anicteric NG tube with LIS Neck: no JVD, supple Respiratory: no wheezing, no rales, no rhonchi Cardiovascular: RRR, no significant murmur, no rub Gastrointestinal: soft, non-tender, no distention, positive bowel sounds Musculoskeletal: no edema, pulses present Neurological: non-focal, normal sensation, moves all 4 limbs Psychiatric: normal affect, A&O x 3 Skin: no rash, normal turgor Dx/Plan (1) Epigastric abdominal pain Code(s): R10.13 - EPIGASTRIC PAIN Status: Acute (2) Gastric distention Code(s): K31.89 - OTHER DISEASES OF STOMACH AND DUODENUM Status: Acute (3) Gastric outlet obstruction Code(s): K31.1 - ADULT HYPERTROPHIC PYLORIC STENOSIS Status: Acute (4) Dehydration Code(s): E86.0 - DEHYDRATION Status: Resolved (5) Metabolic alkalosis Code(s): E87.3 - ALKALOSIS Status: Acute (6) Nausea & vomiting Code(s): R11.2 - NAUSEA WITH VOMITING, UNSPECIFIED Status: Resolved (7) Anxiety and depression Code(s): F41.9 - ANXIETY DISORDER, UNSPECIFIED; F32.9 - MAJOR DEPRESSIVE DISORDER, SINGLE EPISODE, UNSPECIFIED Status: Chronic (8) Chronic low back pain Code(s): M54.5 - LOW BACK PAIN; G89.29 - OTHER CHRONIC PAIN Status: Chronic (9) H/O gastric bypass Code(s): Z98.84 - BARIATRIC SURGERY STATUS Status: Chronic (10) H/O peptic ulcer Code(s): Z87.11 - PERSONAL HISTORY OF PEPTIC ULCER DISEASE Status: Chronic (11) Hypothyroidism Code(s): E03.9 - HYPOTHYROIDISM, UNSPECIFIED Status: Chronic (12) Rheumatoid arthritis Code(s): M06.9 - RHEUMATOID ARTHRITIS, UNSPECIFIED Status: Chronic - Plan cont current plan of care, plan discussed w/ family * medication reviewed as below * symptomatic treatment * today afternoon plan for surgery * discussed with bedside * continue NG tube with LIS * continue IVF. Review of Systems - Review of Systems ENT: negative: Ear Pain, Ear Discharge, Nose Pain, Nose Discharge, Nose Congestion, Mouth Pain, Mouth Swelling, Throat Pain, Throat Swelling, Other Respiratory: negative: Cough, Dry, Shortness of Breath, Hemoptysis, SOB with Excertion, Pleuritic Pain, Sputum, Wheezing Cardiovascular: negative: chest pain, palpitations, orthopnea, paroxysmal nocturnal dyspnea, edema, light headedness, other Gastrointestinal: negative: Nausea, Vomiting, Abdominal Pain, Diarrhea, Constipation, Melena, Hematochezia, Other Genitourinary: negative: Dysuria, Frequency, Incontinence, Hematuria, Retention , Other Musculoskeletal: negative: Neck Pain, Shoulder Pain, Arm Pain, Back Pain, Hand Pain, Leg Pain, Foot Pain, Other - Medications/Allergies Allergies/Adverse Reactions: Allergies Allergy/AdvReac Type Severity Reaction Status Date / Time adhesive tape Allergy Verified 09/08/17 10:32 Penicillins Allergy Verified 09/08/17 10:32 Sulfa (Sulfonamide Allergy Verified 09/08/17 10:32 Antibiotics) Medications: Current Medications Acetaminophen (Tylenol) 650 mg [place] Q4H PRN PRN Reason: Headache/Fever/Mild Pain (1-3) Artificial Tears (Tears Naturale) 2 drop EA EYE PRN PRN PRN Reason: Dry Eyes Bisacodyl (Dulcolax) 10 mg [place] DAILYPRN PRN PRN Reason: Constipation Diphenhydramine HCl (Benadryl) 12.5 mg IVP ONE PRN PRN Reason: Itching Stop: 07/21/18 23:33 Enoxaparin Sodium (Lovenox) 40 mg SC 0900 [facility] Last Admin: 07/20/18 09:40 Dose: 40 mg Hydralazine HCl (Apresoline) 10 mg SLOW IVP Q4H PRN PRN Reason: SBP Greater Than 170 Potassium Chloride/Dextrose/Sod Cl (D5 1/2 Ns W/20 Meq Kcl) 1,000 mls @ 125 mls /hr IV .Q8H [facility] Last Admin: 07/21/18 08:22 Dose: 1,000 mls Acetaminophen 1,000 mg/ Device 100 mls @ 400 mls/hr IVPB ONCALL-OR MIKE Stop: 07/21/18 15:00 Cefoxitin Sodium 2 gm/ Sodium (Chloride) 100 mls @ 100 mls/hr IVPB ONCALL-OR MIKE Stop: 07/21/18 15:00 Acetaminophen 650 mg/ Device 65 mls @ 400 mls/hr IVPB Q6H PRN PRN Reason: PAIN 1-3 Stop: 07/21/18 23:36 Last Admin: 07/21/18 00:53 Dose: 65 mls Ketorolac Tromethamine (Toradol) 30 mg IVP ONCALL-OR MIKE Stop: 07/21/18 15:00 Mineral Oil/White Petrolatum (Eucerin Cream) 0 gm TOP BIDPRN PRN PRN Reason: Dry Skin Morphine Sulfate (Morphine) 2 mg SLOW IVP Q2H PRN PRN Reason: Pain Last Admin: 07/21/18 08:12 Dose: 2 mg Ondansetron HCl (Zofran) 4 mg IVP Q6H PRN PRN Reason: Nausea/Vomiting Last Admin: 07/20/18 12:25 Dose: 4 mg Oxymetazoline HCl (Oxymetazoline Hcl) 2 sprays NASAL BID [facility] Last Admin: 07/20/18 20:12 Dose: Not Given Pantoprazole Sodium (Protonix) 40 mg IVP Q12HR [facility] Last Admin: 07/21/18 08:12 Dose: 40 mg Sodium Chloride (Flush - Normal Saline) 10 ml IVF Q12HR [facility] Last Admin: 07/20/18 20:12 Dose: 10 ml Sodium Chloride (Flush - Normal Saline) 10 ml IVF PRN PRN PRN Reason: Saline Flush Sodium Chloride ([place] Nasal [place] 0.65%) 0 ml EA NARE QIDPRN PRN PRN Reason: Nasal Congestion Throat Lozenges (Cepastat Lozenges) 1 zaida PO Q2H PRN PRN Reason: Sore Throat
[2018-07-21] MEDS: Oxymetazoline HCl 0.05% ( 15 ML ) NASAL SCH (10:17)
[2018-07-21] MEDS: Enoxaparin Sodium 40 MG/0.4 ML SYRINGE SC SCH (11:41)
[2018-07-21] MEDS ORDERED: Ketorolac Tromethamine 30 MG/ML VIAL ONE (11:49)
[2018-07-21] MEDS ORDERED: Fentanyl 100 MCG/2 ML VIAL ONE ×2 (12:31→16:20)
[2018-07-21] MEDS ORDERED: Bupivacaine/Epinephrine 0.25% 30 ML VIAL ONE ×2 (12:32→12:44)
[2018-07-21] MEDS ORDERED: Promethazine HCl 25 MG/ML VIAL IM PRN (12:55)
[2018-07-21] MEDS ORDERED: Promethazine HCl 25 MG/ML VIAL SLOW IVP PRN (12:55)
[2018-07-21] MEDS ORDERED: HYDROmorphone 2 MG/ML VIAL SLOW IVP PRN (12:55)
[2018-07-21] MEDS ORDERED: Meperidine HCl/PF 25 MG/ML VIAL SLOW IVP PRN (12:55)
[2018-07-21] MEDS ORDERED: Albumin 5% 500 ML ONE (14:03)
[2018-07-21] MEDS ORDERED: Meperidine HCl/PF 25 MG/ML VIAL ONE (15:33)
[2018-07-21] MEDS ORDERED: Promethazine HCl 25 MG/ML VIAL ONE (15:35)
[2018-07-21] MEDS ORDERED: Morphine 4 MG/ML VIAL SLOW IVP PRN (15:41)
[2018-07-21] MEDS ORDERED: D5 1/2 NS w/20 mEq KCL 1,000 ML ONE (16:41)
[2018-07-22] MEDS: Morphine 2 MG/ML SYRINGE SLOW IVP PRN ×8 (00:51→21:56)
[2018-07-22] MEDS: D5 1/2 NS w/20 mEq KCL 1,000 ML IV SCH ×3 (00:51→15:09)
[2018-07-22 05:50] LABS: #Lymphocytes 0.6 thou/uL (1.20-3.40); #Monocytes 0.9 thou/uL (0.11-0.59); #Neutrophils 11.7 thou/uL (1.40-6.50); %Basophils 0.1 % (0.0-1.0); %Eosinophils 0.3 % (0.0-10.0); %Lymphocytes 4.4 % (21.0-51.0); %Monocytes 6.8 % (0.0-10.0); %Neutrophils 88.4 % (42.0-75.0); Mean Corpuscular HGB CONC 31.8 g/dL (32.0-36.0); Mean Corpuscular Hemoglobin 30.5 pg (27.0-31.0); Mean Corpuscular Volume 95.9 fL (78.0-98.0); Mean Platelet Volume 7.3 fL (7.4-10.4); Platelet Count 332 thou/uL (130-400); RBC Distribution Width 12.9 % (11.5-14.5); White Blood Cell (WBC) Count 13.3 thou/uL (4.8-10.8)
[2018-07-22 06:12] LABS: Anion Gap 11 mmol/L (10-20); BUN (Urea Nitrogen) Less than 4 mg/dL (7.0-18.7); Calc. Creatinine Clearance 93 mL/min (70-130); Calcium 9.2 mg/dL (7.8-10.44); Carbon Dioxide 26 mmol/L (22-29); Chloride 104 mmol/L (98-107); Estimated GFR-MDRD 88; Glucose 129 mg/dL (70-105); Magnesium 1.8 mg/dL (1.6-2.6); Phosphorus 2.9 mg/dL (2.3-4.7); Sodium 137 mmol/L (136-145)
--- NOTE | 2018-07-22 08:37 | PDOC.PN ---
- Subjective Encounter Start Date: 07/22/18 Encounter Start Time: 07:30 Patient seen and examined. No new complaints. No overnight events - Objective Resuscitation Status: Resuscitation Status FULL:Full Resuscitation MAR Reviewed: Yes Vital Signs & Weight: Vital Signs (12 hours) Temp Pulse Resp BP Pulse Ox 07/22/18 07:37 97.7 F 100 20 130/87 99 07/22/18 00:08 99 F 95 20 136/84 97 07/21/18 21:00 96 Weight Admit Weight 126 lb 12.253 oz Weight 126 lb 12.253 oz I&O: 07/21/18 07/22/18 07/23/18 06:59 06:59 06:59 Intake Total 1660 2125 Output Total 560 70 Balance 1100 2054 Result Diagrams: 07/22/18 05:11 07/22/18 05:11 Phys Exam - Physical Examination Constitutional: NAD HEENT: PERRLA, moist MMs, sclera anicteric Neck: no JVD, supple Respiratory: no wheezing, no rales, no rhonchi Cardiovascular: RRR, no significant murmur, no rub Gastrointestinal: soft, no distention, positive bowel sounds Musculoskeletal: no edema, pulses present Neurological: non-focal, normal sensation, moves all 4 limbs Psychiatric: normal affect, A&O x 3 Skin: no rash, normal turgor Dx/Plan (1) Epigastric abdominal pain Code(s): R10.13 - EPIGASTRIC PAIN Status: Acute (2) Gastric distention Code(s): K31.89 - OTHER DISEASES OF STOMACH AND DUODENUM Status: Acute (3) Gastric outlet obstruction Code(s): K31.1 - ADULT HYPERTROPHIC PYLORIC STENOSIS Status: Acute (4) Dehydration Code(s): E86.0 - DEHYDRATION Status: Resolved (5) Metabolic alkalosis Code(s): E87.3 - ALKALOSIS Status: Acute (6) Nausea & vomiting Code(s): R11.2 - NAUSEA WITH VOMITING, UNSPECIFIED Status: Resolved (7) Anxiety and depression Code(s): F41.9 - ANXIETY DISORDER, UNSPECIFIED; F32.9 - MAJOR DEPRESSIVE DISORDER, SINGLE EPISODE, UNSPECIFIED Status: Chronic (8) Chronic low back pain Code(s): M54.5 - LOW BACK PAIN; G89.29 - OTHER CHRONIC PAIN Status: Chronic (9) H/O gastric bypass Code(s): Z98.84 - BARIATRIC SURGERY STATUS Status: Chronic (10) H/O peptic ulcer Code(s): Z87.11 - PERSONAL HISTORY OF PEPTIC ULCER DISEASE Status: Chronic (11) Hypothyroidism Code(s): E03.9 - HYPOTHYROIDISM, UNSPECIFIED Status: Chronic (12) Rheumatoid arthritis Code(s): M06.9 - RHEUMATOID ARTHRITIS, UNSPECIFIED Status: Chronic - Plan cont current plan of care, plan discussed w/ family, incentive spirometry * continue post operative care as per surgeon * diet as per surgeon * drain care * pain control * medication reviewed as below * symptomatic treatment * discussed with . Review of Systems - Review of Systems ENT: negative: Ear Pain, Ear Discharge, Nose Pain, Nose Discharge, Nose Congestion, Mouth Pain, Mouth Swelling, Throat Pain, Throat Swelling, Other Respiratory: negative: Cough, Dry, Shortness of Breath, Hemoptysis, SOB with Excertion, Pleuritic Pain, Sputum, Wheezing Cardiovascular: negative: chest pain, palpitations, orthopnea, paroxysmal nocturnal dyspnea, edema, light headedness, other Gastrointestinal: negative: Nausea, Vomiting, Abdominal Pain, Diarrhea, Constipation, Melena, Hematochezia, Other Genitourinary: negative: Dysuria, Frequency, Incontinence, Hematuria, Retention , Other Musculoskeletal: negative: Neck Pain, Shoulder Pain, Arm Pain, Back Pain, Hand Pain, Leg Pain, Foot Pain, Other Skin: negative: Rash, Lesions, Jez, Bruising, Other - Medications/Allergies Allergies/Adverse Reactions: Allergies Allergy/AdvReac Type Severity Reaction Status Date / Time adhesive tape Allergy Verified 09/08/17 10:32 Penicillins Allergy Verified 09/08/17 10:32 Sulfa (Sulfonamide Allergy Verified 09/08/17 10:32 Antibiotics) Medications: Current Medications Acetaminophen (Tylenol) 650 mg [place] Q4H PRN PRN Reason: Headache/Fever/Mild Pain (1-3) Artificial Tears (Tears Naturale) 2 drop EA EYE PRN PRN PRN Reason: Dry Eyes Bisacodyl (Dulcolax) 10 mg [place] DAILYPRN PRN PRN Reason: Constipation Enoxaparin Sodium (Lovenox) 40 mg SC 0900 [facility] Last Admin: 07/21/18 11:41 Dose: Not Given Hydralazine HCl (Apresoline) 10 mg SLOW IVP Q4H PRN PRN Reason: SBP Greater Than 170 Potassium Chloride/Dextrose/Sod Cl (D5 1/2 Ns W/20 Meq Kcl) 1,000 mls @ 125 mls /hr IV .Q8H [facility] Last Admin: 07/22/18 00:51 Dose: 1,000 mls Mineral Oil/White Petrolatum (Eucerin Cream) 0 gm TOP BIDPRN PRN PRN Reason: Dry Skin Morphine Sulfate (Morphine) 2 mg SLOW IVP Q2H PRN PRN Reason: Pain Last Admin: 07/22/18 04:01 Dose: 2 mg Morphine Sulfate (Morphine) 4 mg SLOW IVP Q2H PRN PRN Reason: Pain Ondansetron HCl (Zofran) 4 mg IVP Q6H PRN PRN Reason: Nausea/Vomiting Last Admin: 07/20/18 12:25 Dose: 4 mg Pantoprazole Sodium (Protonix) 40 mg IVP Q12HR [facility] Last Admin: 07/21/18 21:50 Dose: 40 mg Sodium Chloride (Flush - Normal Saline) 10 ml IVF Q12HR [facility] Last Admin: 07/21/18 21:51 Dose: 10 ml Sodium Chloride (Flush - Normal Saline) 10 ml IVF PRN PRN PRN Reason: Saline Flush Sodium Chloride ([place] Nasal [place] 0.65%) 0 ml EA NARE QIDPRN PRN PRN Reason: Nasal Congestion Throat Lozenges (Cepastat Lozenges) 1 zaida PO Q2H PRN PRN Reason: Sore Throat
[2018-07-22] MEDS: Pantoprazole 40 MG VIAL IVP SCH ×2 (08:53→21:51)
[2018-07-22] MEDS: Enoxaparin Sodium 40 MG/0.4 ML SYRINGE SC SCH (08:57)
--- NOTE | 2018-07-22 14:04 | PRG ---
DATE OF SERVICE: 07/22/2018 SUBJECTIVE: Ms. Puente is postoperative day number 1 from laparoscopic revision of her gastrojejunost kendall. I excised her prior anastomosis and performed another gastrojejunostomy laparoscopically. Her nasogastric tube was left out after surgery. She tells me that in general she has been doing well. She does have some right-sided abdominal pain at the site of her dominant laparoscopic port site. Vianca villegas has been tolerating sips of clear liquids without nausea or vomiting. She is urinating, but has no t had flatus or bowel movement. PHYSICAL EXAMINATION: VITAL SIGNS: She is afebrile with a temperature of 97.4, her pulse is between 95 and 100, blood pres sure is 115/78. LUNGS: Clear to auscultation. CARDIAC: Regular rate and rhythm. ABDOMEN: Soft. Bowel sounds are present, but very hypoactive. Incisions are healing nicely. LABORATORY STUDIES: White blood cell count is elevated at 13.3 with a hemoglobin of 14.0. Electroly kervin are normal. Glucose is slightly elevated at 129. Her drain output was 70 mL overnight. ASSESSMENT AND PLAN: The patient is postoperative day number 1 from gastrojejunostomy revision. She had a functional gastric outlet obstruction. She appears to have some degree of ileus that may be r elated to her surgery and/or her narcotic use. I have encouraged her to decrease her narcotic use an d I have reordered for her intravenous Tylenol, which helped her previously. She is encouraged to in crease her oral intake as tolerated. She will ambulate regularly. As soon as she is tolerating adeq uate liquids, then she will be stable for discharge. I expect this will be at the next 24-48 hours.
[2018-07-22] MEDS: Acetaminophen 1,000 MG in Premix Bag 1 BAG IVPB SCH (17:06)
--- NOTE | 2018-07-22 22:59 | PRG ---
DATE OF SERVICE: 07/22/2018 SUBJECTIVE: Ms. Puente is doing well this evening. She has had 3 trays of clear liquid diet and keep ing that down. She has no significant pain currently. She did have some pain this morning. She has been passing flatus. OBJECTIVE: VITAL SIGNS: Temperature 98.0, pulse 98, blood pressure 114/78. GENERAL: She is in no acute distress. She is alert and oriented x3. LUNGS: Clear to auscultation bilaterally. HEART: Regular rate and rhythm without murmur. ABDOMEN: Soft. She has tenderness diffusely a little less so in the lower abdomen. Bowel sounds ar e present. EXTREMITIES: No lower extremity edema. LABORATORY DATA: White blood cell count 13.3, hemoglobin 14.0, platelets 332, creatinine is 0.73. 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 She is already doing clinically significantly better. RECOMMENDATIONS: 1. She will advance her diet as advised by General Surgery. 2. We will await the [facility] inflammatory bowel disease serology. 3. Proton pump inhibitor.
[2018-07-23] MEDS: Morphine 2 MG/ML SYRINGE SLOW IVP PRN ×6 (00:49→23:52)
[2018-07-23] MEDS: Acetaminophen 1,000 MG in Premix Bag 1 BAG IVPB SCH ×4 (00:50→17:10)
[2018-07-23] MEDS: D5 1/2 NS w/20 mEq KCL 1,000 ML IV SCH ×5 (00:53→23:51)
[2018-07-23 05:07] LABS: #Eosinphils 0.3 thou/uL (0.0-0.7); #Lymphocytes 1.6 thou/uL (1.20-3.40); #Monocytes 0.6 thou/uL (0.11-0.59); #Neutrophils 4.2 thou/uL (1.40-6.50); %Basophils 0.6 % (0.0-1.0); %Eosinophils 3.8 % (0.0-10.0); %Lymphocytes 24.3 % (21.0-51.0); %Monocytes 8.4 % (0.0-10.0); %Neutrophils 62.9 % (42.0-75.0); Hemoglobin 13.2 g/dL (12.0-16.0); Mean Corpuscular HGB CONC 32.2 g/dL (32.0-36.0); Mean Corpuscular Hemoglobin 31.2 pg (27.0-31.0); Mean Corpuscular Volume 96.9 fL (78.0-98.0); Mean Platelet Volume 7.5 fL (7.4-10.4); Platelet Count 294 thou/uL (130-400); RBC Distribution Width 13.1 % (11.5-14.5); Red Blood Cell (RBC) Count 4.24 mill/uL (4.20-5.40); White Blood Cell (WBC) Count 6.7 thou/uL (4.8-10.8)
[2018-07-23] MEDS ORDERED: Loperamide HCl 2 MG CAP PO PRN (07:18)
[2018-07-23] MEDS ORDERED: Acetaminophen 500 MG TAB PO PRN (07:18)
[2018-07-23] MEDS ORDERED: Senokot S 8.6-50 MG TAB PO PRN (07:18)
[2018-07-23] MEDS ORDERED: Zolpidem Tartrate 5 MG TAB PO PRN (07:18)
[2018-07-23] MEDS ORDERED: Diabetic Tussin 200 MG/10 ML UDCUP PO PRN (07:18)
[2018-07-23] MEDS ORDERED: Ondansetron ODT 4 MG TAB SL PRN (07:18)
[2018-07-23] MEDS: Pantoprazole 40 MG VIAL IVP SCH ×2 (08:30→21:05)
[2018-07-23] MEDS: Leflunomide 10 mg Tablet PO SCH (08:30)
[2018-07-23] MEDS: Enoxaparin Sodium 40 MG/0.4 ML SYRINGE SC SCH (08:30)
--- NOTE | 2018-07-23 09:29 | PDOC.PN ---
- Subjective Encounter Start Date: 07/23/18 Encounter Start Time: 07:50 pt is doing well, tolerating clear liquid diet, still has drain in place, her pain is controlled - Objective Resuscitation Status: Resuscitation Status FULL:Full Resuscitation MAR Reviewed: Yes Vital Signs & Weight: Vital Signs (12 hours) Temp Pulse Resp BP Pulse Ox 07/23/18 08:20 97.7 F 93 16 102/68 96 07/23/18 04:00 98.8 F 98 18 102/69 97 07/23/18 00:00 99.4 F 97 16 109/77 96 07/22/18 23:59 97.8 F 97 16 109/77 96 Weight Admit Weight 126 lb 12.253 oz Weight 126 lb 12.253 oz I&O: 07/22/18 07/23/18 07/24/18 06:59 06:59 06:59 Intake Total 2125 3595 Output Total 70 235 Balance 5 3360 Result Diagrams: 07/23/18 04:32 07/22/18 05:11 Phys Exam - Physical Examination Constitutional: NAD HEENT: PERRLA, moist MMs, sclera anicteric Neck: no JVD, supple Respiratory: no wheezing, no rales, no rhonchi Cardiovascular: RRR, no significant murmur, no rub Gastrointestinal: soft, non-tender, no distention, positive bowel sounds drain+ Musculoskeletal: no edema, pulses present Neurological: non-focal, normal sensation, moves all 4 limbs Psychiatric: normal affect, A&O x 3 Skin: no rash, normal turgor Dx/Plan (1) Epigastric abdominal pain Code(s): R10.13 - EPIGASTRIC PAIN Status: Acute (2) Gastric distention Code(s): K31.89 - OTHER DISEASES OF STOMACH AND DUODENUM Status: Acute (3) Gastric outlet obstruction Code(s): K31.1 - ADULT HYPERTROPHIC PYLORIC STENOSIS Status: Acute (4) Dehydration Code(s): E86.0 - DEHYDRATION Status: Resolved (5) Metabolic alkalosis Code(s): E87.3 - ALKALOSIS Status: Acute (6) Nausea & vomiting Code(s): R11.2 - NAUSEA WITH VOMITING, UNSPECIFIED Status: Resolved (7) Anxiety and depression Code(s): F41.9 - ANXIETY DISORDER, UNSPECIFIED; F32.9 - MAJOR DEPRESSIVE DISORDER, SINGLE EPISODE, UNSPECIFIED Status: Chronic (8) Chronic low back pain Code(s): M54.5 - LOW BACK PAIN; G89.29 - OTHER CHRONIC PAIN Status: Chronic (9) H/O gastric bypass Code(s): Z98.84 - BARIATRIC SURGERY STATUS Status: Chronic (10) H/O peptic ulcer Code(s): Z87.11 - PERSONAL HISTORY OF PEPTIC ULCER DISEASE Status: Chronic (11) Hypothyroidism Code(s): E03.9 - HYPOTHYROIDISM, UNSPECIFIED Status: Chronic (12) Rheumatoid arthritis Code(s): M06.9 - RHEUMATOID ARTHRITIS, UNSPECIFIED Status: Chronic - Plan cont current plan of care, plan discussed w/ family * medication reviewed as below * symptomatic treatment * check ferritin * restart selected home meds * diet as per surgeon * discussed with . Review of Systems - Review of Systems ENT: negative: Ear Pain, Ear Discharge, Nose Pain, Nose Discharge, Nose Congestion, Mouth Pain, Mouth Swelling, Throat Pain, Throat Swelling, Other Respiratory: negative: Cough, Dry, Shortness of Breath, Hemoptysis, SOB with Excertion, Pleuritic Pain, Sputum, Wheezing Cardiovascular: negative: chest pain, palpitations, orthopnea, paroxysmal nocturnal dyspnea, edema, light headedness, other Gastrointestinal: negative: Nausea, Vomiting, Abdominal Pain, Diarrhea, Constipation, Melena, Hematochezia, Other Genitourinary: negative: Dysuria, Frequency, Incontinence, Hematuria, Retention , Other Musculoskeletal: negative: Neck Pain, Shoulder Pain, Arm Pain, Back Pain, Hand Pain, Leg Pain, Foot Pain, Other Skin: negative: Rash, Lesions, Jez, Bruising, Other - Medications/Allergies Allergies/Adverse Reactions: Allergies Allergy/AdvReac Type Severity Reaction Status Date / Time adhesive tape Allergy Verified 09/08/17 10:32 Penicillins Allergy Verified 09/08/17 10:32 Sulfa (Sulfonamide Allergy Verified 09/08/17 10:32 Antibiotics) Medications: Current Medications Acetaminophen (Tylenol) 650 mg NH Q4H PRN PRN Reason: Headache/Fever/Mild Pain (1-3) Acetaminophen (Tylenol) 500 mg PO Q6H PRN PRN Reason: Mild Pain (1-3) Artificial Tears (Tears Naturale) 2 drop EA EYE PRN PRN PRN Reason: Dry Eyes Bisacodyl (Dulcolax) 10 mg NH DAILYPRN PRN PRN Reason: Constipation Enoxaparin Sodium (Lovenox) 40 mg SC 0900 [facility] Last Admin: 07/23/18 08:30 Dose: 40 mg Escitalopram Oxalate (Lexapro) 20 mg PO HS [facility] [place] Guaifenesin (Robitussin Sf) 200 mg PO Q4H PRN PRN Reason: Cough Hydralazine HCl (Apresoline) 10 mg SLOW IVP Q4H PRN PRN Reason: SBP Greater Than 170 Hydroxychloroquine Sulfate (Plaquenil) 200 mg PO HS [facility] [place] Acetaminophen 1,000 mg/ Device 100 mls @ 400 mls/hr IVPB Q6HR [facility] Stop: 07/24/18 18:01 Last Admin: 07/23/18 06:12 Dose: 100 mls Potassium Chloride/Dextrose/Sod Cl (D5 1/2 Ns W/20 Meq Kcl) 1,000 mls @ 100 mls /hr IV .Q10H [facility] Last Admin: 07/23/18 08:44 Dose: Not Given Leflunomide (Arava) 10 mg PO DAILY [facility] [place] Last Admin: 07/23/18 08:30 Dose: Not Given Levothyroxine Sodium (Synthroid) 25 mcg PO 0600 [facility] [place] Loperamide HCl (Imodium) 2 mg PO PRN PRN PRN Reason: Diarrhea/Loose Stools Mineral Oil/White Petrolatum (Eucerin Cream) 0 gm TOP BIDPRN PRN PRN Reason: Dry Skin Morphine Sulfate (Morphine) 2 mg SLOW IVP Q2H PRN PRN Reason: Pain Last Admin: 07/23/18 08:30 Dose: 2 mg Morphine Sulfate (Morphine) 4 mg SLOW IVP Q2H PRN PRN Reason: Pain Ondansetron HCl (Zofran) 4 mg IVP Q6H PRN PRN Reason: Nausea/Vomiting Last Admin: 07/20/18 12:25 Dose: 4 mg Ondansetron HCl (Zofran Odt) 4 mg SL Q6H PRN PRN Reason: Nausea/Vomiting Pantoprazole Sodium (Protonix) 40 mg IVP Q12HR [facility] [place] Last Admin: 07/23/18 08:30 Dose: 40 mg Senna/Docusate Sodium (Senokot S) 2 tab PO BID PRN PRN Reason: Constipation Sodium Chloride (Flush - Normal Saline) 10 ml IVF Q12HR [facility] Last Admin: 07/23/18 08:31 Dose: 10 ml Sodium Chloride (Flush - Normal Saline) 10 ml IVF PRN PRN PRN Reason: Saline Flush Sodium Chloride ([place] 0.65%) 0 ml EA NARE QIDPRN PRN PRN Reason: Nasal Congestion Throat Lozenges (Cepastat Lozenges) 1 zaida PO Q2H PRN PRN Reason: Sore Throat Zolpidem Tartrate (Ambien) 5 mg PO HSPRN PRN PRN Reason: Insomnia
--- NOTE | 2018-07-23 11:44 | PRG ---
DATE OF SERVICE: 07/23/2018 SUBJECTIVE: She has minimal pain this morning. Her bowel sounds are active. She is tolerating adrian r liquids well. OBJECTIVE: VITAL SIGNS: Temperature 97.7, pulse 93, blood pressure 102/68. GENERAL: She is in no acute distress. LUNGS: Clear to auscultation bilaterally. HEART: Regular rate and rhythm. ABDOMEN: Mildly tenderness diffusely without guarding. Bowel sounds are present. EXTREMITIES: No lower extremity edema. IMPRESSION: Stricture of the small bowel at the anastomosis between the stomach and jejunum. Status post surgical revision with already improved symptoms. RECOMMENDATIONS: Postoperative care per General Surgery. She will advance her diet is recommended b y General Surgery.
[2018-07-23] MEDS ORDERED: traMADol HCl 50 MG TAB PO PRN (11:49)
[2018-07-23] MEDS: traMADol HCl 50 MG TAB PO SCH ×3 (12:16→23:51)
--- NOTE | 2018-07-23 16:25 | PRG ---
DATE OF SERVICE: 07/23/2018 SUBJECTIVE: Ms. Puente is accordance postop day #2 status post laparoscopic revision of her gastrojej unostomy with Dr. Vidal. There were no acute overnight events. Patient reports that she continues to tolerate clear liquids. Pain remains uncontrolled and she has not been able to wean from IV anal gesics. She is ambulating. OBJECTIVE: VITAL SIGNS: Temperature 97.7, pulse 93, respirations 16, O2 sat 96% on room air, blood pressure 102 /68. GENERAL: Resting in bed in no acute distress. PULMONARY: Normal work of breathing. Symmetric rise. CARDIOVASCULAR: Regular rate and rhythm. GASTROINTESTINAL: Abdomen is soft with generalized tenderness. No guarding or rigidity. Bowel soun ds remain hypoactive. Surgical sites are clean, dry, and intact. SUHAS drain with serosanguineous drai nage. MUSCULOSKELETAL: Moves all extremities x4. NEUROLOGIC: No focal deficit noted. LABORATORY FINDINGS: WBC 6.7, hemoglobin 13.2, hematocrit 41.1, platelet count 294. ASSESSMENT: 1. Postop day #2 status post gastrojejunostomy revision. 2. Acute pain. PLAN: Transition from IV to p.o. analgesics. Patient was educated to try and refrain from use of IV narcotics as this may prolong time to return of bowel function. Encourage incentive spirometry and pulmonary toileting. Encourage mobility. Plan of care was discussed with the patient and family at bedside and all questions were answered at the time of this dictation. Patient was seen and evaluate d with Dr. Mcbride.
[2018-07-23] MEDS: Acetaminophen 500 MG TAB PO SCH ×2 (16:58→23:50)
[2018-07-23] MEDS: Escitalopram Oxalate 20 mg Tablet PO SCH (21:04)
[2018-07-23] MEDS: Hydroxychloroquine Sulfate 200 MG TAB PO SCH (21:05)
[2018-07-24] MEDS: traMADol HCl 50 MG TAB PO SCH ×3 (05:41→18:07)
[2018-07-24] MEDS: Acetaminophen 500 MG TAB PO SCH (05:44)
[2018-07-24] MEDS: Levothyroxine Sodium 25 MCG TAB PO SCH (05:45)
[2018-07-24] MEDS: Morphine 2 MG/ML SYRINGE SLOW IVP PRN ×2 (07:20→10:45)
[2018-07-24] MEDS: Enoxaparin Sodium 40 MG/0.4 ML SYRINGE SC SCH (07:49)
[2018-07-24] MEDS: Leflunomide 10 mg Tablet PO SCH (07:50)
[2018-07-24] MEDS: Pantoprazole 40 MG VIAL IVP SCH ×2 (07:50→20:58)
--- NOTE | 2018-07-24 10:19 | PDOC.PN ---
- Subjective Encounter Start Date: 07/24/18 Encounter Start Time: 07:50 Patient seen and examined. No new complaints. No overnight events pain controlled, ambulatory - Objective Resuscitation Status: Resuscitation Status FULL:Full Resuscitation MAR Reviewed: Yes Vital Signs & Weight: Vital Signs (12 hours) Temp Pulse Resp BP Pulse Ox 07/24/18 07:46 97.9 F 80 14 112/77 97 07/24/18 04:16 97.9 F 78 18 119/83 98 07/23/18 23:52 98.0 F 89 18 113/78 97 Weight Admit Weight 126 lb 12.253 oz Weight 126 lb 12.253 oz I&O: 07/23/18 07/24/18 07/25/18 06:59 06:59 06:59 Intake Total 3595 3420 Output Total 235 225 Balance 3360 3195 Result Diagrams: 07/23/18 04:32 07/22/18 05:11 Phys Exam - Physical Examination Constitutional: NAD HEENT: PERRLA, moist MMs, sclera anicteric Neck: no JVD, supple Respiratory: no wheezing, no rales, no rhonchi Cardiovascular: RRR, no significant murmur, no rub Gastrointestinal: soft, non-tender, no distention, positive bowel sounds surgical site clean and healthy, drain+ Musculoskeletal: no edema, pulses present Neurological: non-focal, normal sensation, moves all 4 limbs Psychiatric: normal affect, A&O x 3 Skin: no rash, normal turgor Dx/Plan (1) Epigastric abdominal pain Code(s): R10.13 - EPIGASTRIC PAIN Status: Suspected (2) Gastric distention Code(s): K31.89 - OTHER DISEASES OF STOMACH AND DUODENUM Status: Resolved (3) Gastric outlet obstruction Code(s): K31.1 - ADULT HYPERTROPHIC PYLORIC STENOSIS Status: Acute Comment: s/p surgery (4) Dehydration Code(s): E86.0 - DEHYDRATION Status: Resolved (5) Metabolic alkalosis Code(s): E87.3 - ALKALOSIS Status: Resolved (6) Nausea & vomiting Code(s): R11.2 - NAUSEA WITH VOMITING, UNSPECIFIED Status: Resolved (7) Anxiety and depression Code(s): F41.9 - ANXIETY DISORDER, UNSPECIFIED; F32.9 - MAJOR DEPRESSIVE DISORDER, SINGLE EPISODE, UNSPECIFIED Status: Chronic (8) Chronic low back pain Code(s): M54.5 - LOW BACK PAIN; G89.29 - OTHER CHRONIC PAIN Status: Chronic (9) H/O gastric bypass Code(s): Z98.84 - BARIATRIC SURGERY STATUS Status: Chronic (10) H/O peptic ulcer Code(s): Z87.11 - PERSONAL HISTORY OF PEPTIC ULCER DISEASE Status: Chronic (11) Hypothyroidism Code(s): E03.9 - HYPOTHYROIDISM, UNSPECIFIED Status: Chronic (12) Rheumatoid arthritis Code(s): M06.9 - RHEUMATOID ARTHRITIS, UNSPECIFIED Status: Chronic - Plan cont current plan of care, plan discussed w/ family * diet as per surgeon * medication reviewed as below * symptomatic treatment * IBD test came back positive, await pathology report from surgery, GI on case * ambulate as tolerated * pain controlled. Review of Systems - Review of Systems ENT: negative: Ear Pain, Ear Discharge, Nose Pain, Nose Discharge, Nose Congestion, Mouth Pain, Mouth Swelling, Throat Pain, Throat Swelling, Other Respiratory: negative: Cough, Dry, Shortness of Breath, Hemoptysis, SOB with Excertion, Pleuritic Pain, Sputum, Wheezing Cardiovascular: negative: chest pain, palpitations, orthopnea, paroxysmal nocturnal dyspnea, edema, light headedness, other Gastrointestinal: negative: Nausea, Vomiting, Abdominal Pain, Diarrhea, Constipation, Melena, Hematochezia, Other Genitourinary: negative: Dysuria, Frequency, Incontinence, Hematuria, Retention , Other Musculoskeletal: negative: Neck Pain, Shoulder Pain, Arm Pain, Back Pain, Hand Pain, Leg Pain, Foot Pain, Other Skin: negative: Rash, Lesions, Jez, Bruising, Other - Medications/Allergies Allergies/Adverse Reactions: Allergies Allergy/AdvReac Type Severity Reaction Status Date / Time adhesive tape Allergy Verified 09/08/17 10:32 Penicillins Allergy Verified 09/08/17 10:32 Sulfa (Sulfonamide Allergy Verified 09/08/17 10:32 Antibiotics) Medications: Current Medications Acetaminophen (Tylenol) 1,000 mg PO Q6HR [facility] Last Admin: 07/24/18 05:44 Dose: 1,000 mg Artificial Tears (Tears Naturale) 2 drop EA EYE PRN PRN PRN Reason: Dry Eyes Bisacodyl (Dulcolax) 10 mg IA DAILYPRN PRN PRN Reason: Constipation Enoxaparin Sodium (Lovenox) 40 mg SC 0900 [facility] Last Admin: 07/24/18 07:49 Dose: 40 mg Escitalopram Oxalate (Lexapro) 20 mg PO [facility] Last Admin: 07/23/18 21:04 Dose: 20 mg Guaifenesin (Robitussin Sf) 200 mg PO Q4H PRN PRN Reason: Cough Hydralazine HCl (Apresoline) 10 mg SLOW IVP Q4H PRN PRN Reason: SBP Greater Than 170 Hydroxychloroquine Sulfate (Plaquenil) 200 mg PO HS [facility] Last Admin: 07/23/18 21:05 Dose: Not Given Potassium Chloride/Dextrose/Sod Cl (D5 1/2 Ns W/20 Meq Kcl) 1,000 mls @ 100 mls /hr IV .Q10H [facility] Last Admin: 07/23/18 23:51 Dose: 1,000 mls Leflunomide (Arava) 10 mg PO DAILY [facility] Last Admin: 07/24/18 07:50 Dose: Not Given Levothyroxine Sodium (Synthroid) 25 mcg PO 0600 [facility] Last Admin: 07/24/18 05:45 Dose: 25 mcg Loperamide HCl (Imodium) 2 mg PO PRN PRN PRN Reason: Diarrhea/Loose Stools Mineral Oil/White Petrolatum (Eucerin Cream) 0 gm TOP BIDPRN PRN PRN Reason: Dry Skin Morphine Sulfate (Morphine) 2 mg SLOW IVP Q2H PRN PRN Reason: Pain Last Admin: 07/24/18 07:20 Dose: 2 mg Morphine Sulfate (Morphine) 4 mg SLOW IVP Q2H PRN PRN Reason: Pain Last Admin: 07/23/18 13:24 Dose: 2 mg Ondansetron HCl (Zofran) 4 mg IVP Q6H PRN PRN Reason: Nausea/Vomiting Last Admin: 07/20/18 12:25 Dose: 4 mg Ondansetron HCl (Zofran Odt) 4 mg SL Q6H PRN PRN Reason: Nausea/Vomiting Pantoprazole Sodium (Protonix) 40 mg IVP Q12HR [facility] Last Admin: 07/24/18 07:50 Dose: 40 mg Senna/Docusate Sodium (Senokot S) 2 tab PO BID PRN PRN Reason: Constipation Sodium Chloride (Flush - Normal Saline) 10 ml IVF Q12HR [facility] Last Admin: 07/23/18 21:05 Dose: Not Given Sodium Chloride (Flush - Normal Saline) 10 ml IVF PRN PRN PRN Reason: Saline Flush Sodium Chloride ([place] Nasal [place] 0.65%) 0 ml EA NARE QIDPRN PRN PRN Reason: Nasal Congestion Throat Lozenges (Cepastat Lozenges) 1 zaida PO Q2H PRN PRN Reason: Sore Throat Tramadol HCl (Ultram) 50 mg PO Q6HR [facility] Last Admin: 07/24/18 05:41 Dose: 50 mg Tramadol HCl (Ultram) 50 mg PO Q6H PRN PRN Reason: Breakthrough Pain Last Admin: 07/24/18 05:42 Dose: 50 mg Zolpidem Tartrate (Ambien) 5 mg PO HSPRN PRN PRN Reason: Insomnia
[2018-07-24] MEDS: D5 1/2 NS w/20 mEq KCL 1,000 ML IV SCH (10:51)
[2018-07-24] MEDS ORDERED: HYDROcodone/Acetaminophen 7.5/325 mg Tablet PO PRN (11:13)
[2018-07-24] MEDS: Acetaminophen 325 MG TAB PO SCH ×2 (11:51→18:07)
--- NOTE | 2018-07-24 13:47 | PRG ---
DATE OF SERVICE: 07/24/2018 SUBJECTIVE: Ms. Puente is healing well from her surgery. She is tolerating clear liquids well and tr ansitioning to full liquid diet now. Her pain is well controlled. She is passing flatus, but no sto ol yet. OBJECTIVE: VITAL SIGNS: Temperature 97.7, pulse 83, blood pressure 104/71. GENERAL: She is in no acute distress. She is alert and oriented x3. LUNGS: Clear to auscultation bilaterally. HEART: Regular rate and rhythm without murmur. ABDOMEN: Tender diffusely without guarding. Bowel sounds are present. EXTREMITIES: No lower extremity edema. LABORATORY DATA: White blood cell count 6.7, hemoglobin 13.2. Her [facility] inflammatory bowel dis ease serology came back and the antibody profile and genetic profile is suggestive of Crohn's disease . IMPRESSION: Small bowel Crohn's disease. She originally presented in 2014 with gastric outlet obstr uction from nonhealing pyloric ulcer. She, ultimately, required surgical treatment with antrectomy a nd vagotomy and gastrojejunostomy. She returned in 2018 with again a gastric outlet obstruction, now from stricturing of the small bowel at the anastomosis. She required surgical revision of the anast omosis and is healing from that surgery now. Her [facility] inflammatory bowel disease serology is s uggestive of Crohn's. This would certainly tie her overall picture together given that the original cause of the ulcerations has not been determined otherwise. She has been off NSAIDs and has been Hel icobacter pylori negative. She has also had inflammatory arthritis and erythema nodosum, which certa inly could be explained by Crohn's disease. She has had inadequate response of her joint symptoms to leflunomide and hydroxychloroquine. I think she will benefit with all her symptoms with starting an anti-TNF. 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 We will recommend starting Humira 40 mg every 2 weeks, first to be christopher ded week 0 with 160 mg and week 2 with 80 mg and then 40 mg every 2 weeks. We will initiate the proc ess to the office for approval for the insurance. HIV is nonreactive. We will check antibody status to hepatitis A and hepatitis B and vaccinate if she is not immune. She has received her flu shot year. Pneumonia vaccine is recommended now. She will need to follow up with her primary care doc tor to verify that her tetanus, diphtheria, and pertussis are up-to-date. She can also receive the n ew varicella vaccine; however, should not receive live virus vaccines at this time, as we are [place]isa [place] to start anti-TNF.
--- NOTE | 2018-07-24 14:44 | OP ---
DATE OF PROCEDURE: 07/21/2018 PREOPERATIVE DIAGNOSIS: Gastric outlet obstruction (at the prior gastrojejunostomy). POSTOPERATIVE DIAGNOSIS: Gastric outlet obstruction (at the prior gastrojejunostomy). OPERATION PERFORMED: Distal gastrectomy to include the prior gastrojejunostomy and creation of new g astric outflow with new gastrojejunostomy. SURGEON: Michel Vidal M.D. ANESTHESIA: General endotracheal. INDICATIONS: The patient is a 42-year-old white female. She previously had a vagotomy and antrectom y with a Kb-en-Y gastrojejunostomy. She did well for about 2-1/2 years. About 6 months ago, she b julissa developing recurrent problems with nausea and vomiting. She has been found to have a gastric ou tlet obstruction at the gastrojejunostomy. Revision of this anastomosis was recommended. OPERATIVE PROCEDURE IN DETAIL: Informed consent was obtained. The patient taken to the operating ro om where general endotracheal anesthesia obtained with the patient in supine position. Abdomen was p repped with ChloraPrep and draped in sterile fashion. Local anesthetic was infiltrated and 5 mm inci urvashi was created, one of the 5 mm previous laparoscopic port sites in the right upper quadrant. Michelle ss needle was passed through this incision and pneumoperitoneum established using carbon dioxide up t o a pressure of 15 mmHg. A 5 mm trocar port was passed through the same incision. Laparoscopic camer a was passed this port. I thoroughly examined the abdomen. She was noted to have scant adhesions. There were adhesions from omentum up to the abdominal wall at the site of a prior periumbilical herni a repair with mesh. The mesh was intact with no evidence of any recurrence at this site. There were no significant adhesions involving the upper abdomen or the liver. Under direct vision, I placed 3 more ports. I placed two 5 mm left abdominal ports, an additional la teral 5 mm right abdominal port. I exchanged the paramedian right port for a 12 mm port. I then mad e a 5 mm epigastric incision that I used for placement of a Tamika retractor. The left lobe of th e liver was easily retracted. I turned my attention to the area of the gastrojejunostomy. I first assured appropriate anatomy. I was able to identify the Kb limb and trace this down to the jejunojejunostomy. There is no dilatat ion at this level. There was thickening and scarring of the jejunum adjacent to the stomach. There was also thickening of the distal stomach. I first identified a segment of jejunum just distal to th e anastomosis. A mesenteric window was created and the small bowel was divided at this level with a single fire of the [place] stapler. I then took down the mesentery of the jejunum extending towards the anastomosis in order to completely free the segment. I then cleared some of the lesser curve of the stomach and some of the greater curve of the stomach. I resected the distal stomach with 2 fires of the [place] stapler using gold loads of dereje. The specimen was removed through the 12 mm port site in the right abdomen. I then created a gastrojejunostomy, an incision was created on the posterior aspect of the stomach ne ar the staple line. An enterotomy was created on the small intestine and the 60 mm [place] stapler w as used to create an anastomosis. To ensure adequate length and size of this anastomosis, I used to part of another fire a staple to extend the anastomosis. I then closed the common enterotomy involvi ng the stomach and small intestine with another fire of the [place] stapler, again using the gold christopher d. The staple lines were inspected. There were a couple areas of oozing that were quickly controlled wi th electrocautery. The area was irrigated and all irrigant was aspirated. There was no evidence of bleeding or certainly any leak. I then had anesthesia distended the stomach and the proximal bowel w ith air by insufflating through the nasogastric tube. The anastomosis was under water and there was no evidence of leak. All irrigant was aspirated. I then obtained a #19 round fluted drain, brought it out through the right lateral incision site where secured with a 3-0 nylon suture. It was then pl aced underneath the anastomosis and over into the left abdomen. All ports and instruments removed under direct vision. Pneumoperitoneum was carefully evacuated. Qu arter percent Marcaine with epinephrine was infiltrated at each port site. Skin edges approximated w ith 4-0 Monocryl subcuticular suture. The fascia at the 12 mm site was closed with a [id number] suture of 0 Vicryl using the GraNee needle before closure and the wound was extensively irrigated. There were no complications. Blood loss was negligible throughout the operation. She was taken to r ecovery room in stable condition.
[2018-07-24] MEDS: diphenhydrAMINE 25 MG CAP PO PRN (17:16)
--- NOTE | 2018-07-24 19:51 | PRG ---
DATE OF SERVICE: 07/24/2018 SUBJECTIVE: Hazel Puente is a 42-year-old female who is postop day #3 status post gastrojejunostomy revision with Dr. Vidal. There are no acute overnight events. The patient's pain continues to re main uncontrolled that she has used multiple doses of IV pain medications since adjusting her pain re gimen yesterday. She is tolerating a clear liquid diet. She is passing flatus, but has not had any bowel movements at this time. OBJECTIVE: VITAL SIGNS: Temperature 97.9, pulse 83, respirations 16, O2 sat 97% on room air, blood pressure 104 /71. GENERAL: Young female in no acute distress, resting in bed. PULMONARY: Normal work of breathing. Symmetric rise. CARDIOVASCULAR: Regular rate and rhythm. GASTROINTESTINAL: Abdomen is soft with generalized tenderness. No guarding or rigidity. Bowel soun ds are active. Surgical sites are clean, dry, and intact. SUHAS drain with serosanguineous drainage 22 5 mL in 24 hours. MUSCULOSKELETAL: Moves all extremities x4. NEUROLOGIC: No focal deficit is noted. ASSESSMENT: 1. Postoperative day #3, status post gastrojejunostomy revision. 2. Acute pain. PLAN: Increase pain regimen from Ultram only to [place]. Discontinue IV pain medications. Increase d iet to full liquid diet. Encourage mobility, incentive spirometry and pulmonary toileting. If patinelly valiente's pain is controlled, hopefully, she will be a candidate for discharge in the near future. Plan o f care was discussed with the patient and all questions were answered at the time of this dictation. The patient was seen and evaluated with Dr. Mcbride.
[2018-07-24] MEDS: Hydroxychloroquine Sulfate 200 MG TAB PO SCH (20:58)
[2018-07-24] MEDS: Escitalopram Oxalate 20 mg Tablet PO SCH (20:58)
[2018-07-24] MEDS ORDERED: Acetaminophen 650 MG Suppository PR PRN (23:59)
[2018-07-25] MEDS: Acetaminophen 325 MG TAB PO SCH ×4 (00:29→08:37)
[2018-07-25] MEDS: traMADol HCl 50 MG TAB PO SCH ×4 (00:30→08:38)
[2018-07-25] MEDS: diphenhydrAMINE 25 MG CAP PO PRN (02:04)
[2018-07-25] MEDS: Levothyroxine Sodium 25 MCG TAB PO SCH (05:26)
[2018-07-25 05:57] LABS: HBSAB Concentration 0.39 mIU/mL; HBSAg Index 0.22 S/CO (0-0.99); Hep B Core Total Ab Non-Reactive (NonReactive); Hep B Core Total Index 0.08 S/CO (0-0.79); Hep B Surf AB Non-Reactive (NonReactive); Hep B Surf Ag Non-Reactive S/CO (NonReactive); Hep C IgG Ab Non-Reactive (NonReactive); Hep C Index 0.14 S/CO (0-0.79)
[2018-07-25 07:03] LABS: #Basophils 0.1 thou/uL (0.0-0.2); #Eosinphils 0.3 thou/uL (0.0-0.7); #Monocytes 0.4 thou/uL (0.11-0.59); #Neutrophils 5.4 thou/uL (1.40-6.50); %Basophils 0.8 % (0.0-1.0); %Eosinophils 3.5 % (0.0-10.0); %Lymphocytes 13.5 % (21.0-51.0); %Monocytes 5.9 % (0.0-10.0); %Neutrophils 76.2 % (42.0-75.0); Mean Corpuscular HGB CONC 31.5 g/dL (32.0-36.0); Mean Corpuscular Hemoglobin 30.6 pg (27.0-31.0); Mean Platelet Volume 7.7 fL (7.4-10.4); Platelet Count 306 thou/uL (130-400); Red Blood Cell (RBC) Count 4.24 mill/uL (4.20-5.40); White Blood Cell (WBC) Count 7.1 thou/uL (4.8-10.8)
[2018-07-25 07:37] LABS: Anion Gap 8 mmol/L (10-20); BUN (Urea Nitrogen) 6 mg/dL (7.0-18.7); CRP (Inflammatory) 1.03 mg/dL (= or < 0.5); Calc. Creatinine Clearance 101 mL/min (70-130); Calcium 8.7 mg/dL (7.8-10.44); Carbon Dioxide 28 mmol/L (22-29); Chloride 105 mmol/L (98-107); Estimated GFR-MDRD Greater than 90; Glucose 79 mg/dL (70-105); Potassium 3.9 mmol/L (3.5-5.1); Sodium 137 mmol/L (136-145)
[2018-07-25 07:38] VITALS: BP 110/77; TEMP 98.1
[2018-07-25] MEDS: Enoxaparin Sodium 40 MG/0.4 ML SYRINGE SC SCH (08:37)
[2018-07-25] MEDS: Pantoprazole 40 MG VIAL IVP SCH (08:37)
[2018-07-25] MEDS: Leflunomide 10 mg Tablet PO SCH (08:40)
--- NOTE | 2018-07-25 09:57 | PDOC.PN ---
- Subjective Encounter Start Date: 07/25/18 Encounter Start Time: 08:30 pt has blister formation at surgical site, tolerating diet - Objective Resuscitation Status: Resuscitation Status FULL:Full Resuscitation MAR Reviewed: Yes Vital Signs & Weight: Vital Signs (12 hours) Temp Pulse Resp BP BP Pulse Ox 07/25/18 08:37 96 07/25/18 07:38 98.1 F 80 16 110/77 96 07/25/18 03:42 98 F 75 16 100/66 99 07/25/18 00:14 98.2 F 80 16 105/72 97 Weight Admit Weight 126 lb 12.253 oz Weight 126 lb 12.253 oz I&O: 07/24/18 07/25/18 07/26/18 06:59 06:59 06:59 Intake Total 3420 590 270 Output Total 225 235 90 Balance 3195 355 180 Result Diagrams: 07/25/18 04:38 07/25/18 04:38 Phys Exam - Physical Examination Constitutional: NAD HEENT: PERRLA, moist MMs, sclera anicteric Neck: no JVD, supple Respiratory: no wheezing, no rales, no rhonchi Cardiovascular: RRR, no significant murmur, no rub Gastrointestinal: soft, non-tender, no distention, positive bowel sounds blister at surgical site as well as surrounding area Musculoskeletal: no edema, pulses present Neurological: non-focal, normal sensation, moves all 4 limbs Lymphatic: no nodes Psychiatric: normal affect, A&O x 3 Skin: no rash, normal turgor Dx/Plan (1) Epigastric abdominal pain Code(s): R10.13 - EPIGASTRIC PAIN Status: Suspected (2) Gastric distention Code(s): K31.89 - OTHER DISEASES OF STOMACH AND DUODENUM Status: Resolved (3) Gastric outlet obstruction Code(s): K31.1 - ADULT HYPERTROPHIC PYLORIC STENOSIS Status: Acute Comment: s/p surgery (4) Dehydration Code(s): E86.0 - DEHYDRATION Status: Resolved (5) Metabolic alkalosis Code(s): E87.3 - ALKALOSIS Status: Resolved (6) Nausea & vomiting Code(s): R11.2 - NAUSEA WITH VOMITING, UNSPECIFIED Status: Resolved (7) Anxiety and depression Code(s): F41.9 - ANXIETY DISORDER, UNSPECIFIED; F32.9 - MAJOR DEPRESSIVE DISORDER, SINGLE EPISODE, UNSPECIFIED Status: Chronic (8) Chronic low back pain Code(s): M54.5 - LOW BACK PAIN; G89.29 - OTHER CHRONIC PAIN Status: Chronic (9) H/O gastric bypass Code(s): Z98.84 - BARIATRIC SURGERY STATUS Status: Chronic (10) H/O peptic ulcer Code(s): Z87.11 - PERSONAL HISTORY OF PEPTIC ULCER DISEASE Status: Chronic (11) Hypothyroidism Code(s): E03.9 - HYPOTHYROIDISM, UNSPECIFIED Status: Chronic (12) Rheumatoid arthritis Code(s): M06.9 - RHEUMATOID ARTHRITIS, UNSPECIFIED Status: Chronic (13) Crohns disease Code(s): K50.90 - CROHN'S DISEASE, UNSPECIFIED, WITHOUT COMPLICATIONS Status: Acute (14) Acute bullous dermatitis Code(s): L13.9 - BULLOUS DISORDER, UNSPECIFIED Status: Acute - Plan cont current plan of care, plan discussed w/ family * pt has blister but to diagnose biopsy may need but seems like she has pathergy and should be avoided * medication reviewed as below * symptomatic treatment * discharge when surgeon ok. Review of Systems - Review of Systems ENT: negative: Ear Pain, Ear Discharge, Nose Pain, Nose Discharge, Nose Congestion, Mouth Pain, Mouth Swelling, Throat Pain, Throat Swelling, Other Respiratory: negative: Cough, Dry, Shortness of Breath, Hemoptysis, SOB with Excertion, Pleuritic Pain, Sputum, Wheezing Cardiovascular: negative: chest pain, palpitations, orthopnea, paroxysmal nocturnal dyspnea, edema, light headedness, other Gastrointestinal: negative: Nausea, Vomiting, Abdominal Pain, Diarrhea, Constipation, Melena, Hematochezia, Other Genitourinary: negative: Dysuria, Frequency, Incontinence, Hematuria, Retention , Other Musculoskeletal: negative: Neck Pain, Shoulder Pain, Arm Pain, Back Pain, Hand Pain, Leg Pain, Foot Pain, Other - Medications/Allergies Allergies/Adverse Reactions: Allergies Allergy/AdvReac Type Severity Reaction Status Date / Time adhesive tape Allergy Verified 09/08/17 10:32 Penicillins Allergy Verified 09/08/17 10:32 Sulfa (Sulfonamide Allergy Verified 09/08/17 10:32 Antibiotics) Medications: Current Medications Acetaminophen (Tylenol) 650 mg PO Q6HR MIKE Last Admin: 07/25/18 08:37 Dose: 650 mg Hydrocodone Bitart/Acetaminophen ([place] 7.5/325) 1 tab PO Q6HR PRN PRN Reason: Severe Pain (7-10) Last Admin: 07/24/18 20:58 Dose: 1 tab Artificial Tears (Tears Naturale) 2 drop EA EYE PRN PRN PRN Reason: Dry Eyes Bisacodyl (Dulcolax) 10 mg IN DAILYPRN PRN PRN Reason: Constipation Diphenhydramine HCl (Benadryl) 25 mg PO Q6H PRN PRN Reason: Itching Last Admin: 07/25/18 02:04 Dose: 25 mg Enoxaparin Sodium (Lovenox) 40 mg SC 0900 [facility] Last Admin: 07/25/18 08:37 Dose: 40 mg Escitalopram Oxalate (Lexapro) 20 mg PO HS [facility] Last Admin: 07/24/18 20:58 Dose: 20 mg Guaifenesin (Robitussin Sf) 200 mg PO Q4H PRN PRN Reason: Cough Hydralazine HCl (Apresoline) 10 mg SLOW IVP Q4H PRN PRN Reason: SBP Greater Than 170 Hydroxychloroquine Sulfate (Plaquenil) 200 mg PO HS [facility] Last Admin: 07/24/18 20:58 Dose: Not Given Leflunomide (Arava) 10 mg PO DAILY [facility] Last Admin: 07/25/18 08:40 Dose: Not Given Levothyroxine Sodium (Synthroid) 25 mcg PO 0600 [facility] Last Admin: 07/25/18 05:26 Dose: 25 mcg Loperamide HCl (Imodium) 2 mg PO PRN PRN PRN Reason: Diarrhea/Loose Stools Mineral Oil/White Petrolatum (Eucerin Cream) 0 gm TOP BIDPRN PRN PRN Reason: Dry Skin Ondansetron HCl (Zofran) 4 mg IVP Q6H PRN PRN Reason: Nausea/Vomiting Last Admin: 07/20/18 12:25 Dose: 4 mg Ondansetron HCl (Zofran Odt) 4 mg SL Q6H PRN PRN Reason: Nausea/Vomiting Pantoprazole Sodium (Protonix) 40 mg IVP Q12HR [facility] Last Admin: 07/25/18 08:37 Dose: 40 mg Senna/Docusate Sodium (Senokot S) 2 tab PO BID PRN PRN Reason: Constipation Sodium Chloride (Flush - Normal Saline) 10 ml IVF Q12HR [facility] Last Admin: 07/25/18 08:38 Dose: 10 ml Sodium Chloride (Flush - Normal Saline) 10 ml IVF PRN PRN PRN Reason: Saline Flush Sodium Chloride ([place] Nasal [place] 0.65%) 0 ml EA NARE QIDPRN PRN PRN Reason: Nasal Congestion Throat Lozenges (Cepastat Lozenges) 1 zaida PO Q2H PRN PRN Reason: Sore Throat Tramadol HCl (Ultram) 100 mg PO Q6HR [facility] Last Admin: 07/25/18 08:38 Dose: 100 mg Zolpidem Tartrate (Ambien) 5 mg PO HSPRN PRN PRN Reason: Insomnia
--- NOTE | 2018-07-25 10:57 | DIS ---
DATE OF ADMISSION: 07/18/2018 DATE OF DISCHARGE: 07/25/2018 PRIMARY CARE PHYSICIAN: Dr. Edvin Frausto. DISCHARGE DISPOSITION: Home. PRIMARY DISCHARGE DIAGNOSES: 1. Nausea, vomiting, epigastric abdominal pain due to gastric outlet obstruction, resolved. 2. Metabolic alkalosis due to recurrent nausea and vomiting. 3. Gastric distention due to problem #1. 4. Dehydration, corrected. 5. Bullous dermatitis at surgical site. 6. Crohn's disease. 7. Status post gastrojejunostomy revision. SECONDARY DISCHARGE DIAGNOSES: History of gastric bypass, history of peptic ulcer, chronic low back pain, history of erythema nodosum, anxiety and depression, rheumatoid arthritis, hypothyroidism. PRIMARY PROCEDURE/OPERATION: 1. During this admission, patient required NG tube placement. 2. The patient underwent gastrojejunostomy revision by Dr. Vidal. RADIOLOGICAL INVESTIGATION: Abdomen and pelvis CT scan showed gastric distention, which was related with a gastric outlet obstruction. The patient had serial abdomen x-ray. SIGNIFICANT LABORATORY DATA: WBC 7.1, hemoglobin 13.0, platelets 306. ESR 11, CRP 1.03. Sodium 137, potassium 3.9, BUN 6, creatinine 0.67. LFT normal, lipase 13. Urinalysis unremarkable. test negative. Hepatitis profile negative. Serology testing for IBD was positive and pattern consistent with Crohn's disease. Stool for guaiac negative. DISCHARGE MEDICATIONS: The patient will continue all her previous medication, tramadol 50 mg 1 or 2 tablets q.6 hourly p.r.n., Lexapro 20 mg p.o. at bedtime, Plaquenil 200 mg p.o. at bedtime, leflunomide 10 mg p.o. daily, levothyroxine 25 mcg p.o. daily, Protonix 40 mg p.o. b.i.d. CONTRAINDICATIONS: None. CODE STATUS: FULL CODE. INPATIENT CONSULTANTS: Dr. Magana was following while in hospital. Dr. Vidal was following while in hospital. TEST RESULTS PENDING ON DISCHARGE: TB QuantiFERON Gold test. DISCHARGE PLAN: Post hospital, the patient will follow up with Dr. Magana and Dr. Vidal and as instructed. The patient will make appointment with primary care physician. HOSPITAL COURSE: This is a 42-year-old female, who has previous history of peptic ulcer disease and she had a gastric bypass. She had one time surgery for surgical site stricture, and at this time, again she was admitted for nausea , vomiting, and epigastric abdominal pain, which was related with gastric outlet obstruction secondary to the stricture at the gastrojejunostomy site. General Surgery was following while in hospital and they recommended surgery. Patient underwent a gastrojejunostomy revision. After surgery, she had drain in place. Before surgery, patient was treated with IV fluid, NG tube with low intermittent suction, and abnormal electrolytes corrected, and her dehydration was corrected. After surgery, patient had a surgical site bullous lesion, which we are suspecting from pathology. This patient may need further evaluation with a skin biopsy if needed as an outpatient basis, but we are trying to avoid, because we are suspecting pathologic response. Dr. Magana was following and he sent IBD serology testing and that came back positive and pattern consistent with IBD Crohn's disease. Retrospectively patient's presentation and prospectively based on this testing, Dr. Magana was thinking that this patient might have Crohn's disease and that is why TB QuantiFERON test was sent and he is considering outpatient basis Humira therapy. After surgery, patient was started on diet and diet was advanced. The patient was tolerating diet very well. Her pain was well controlled. Dr. Vidal cleared her for discharge today. The patient is seen and examined at bedside today. Plan of care discussed with the patient's . Please see my progress note from today for further detail. Total time spent on discharge day 31 minutes MTDD
[2018-07-26 11:18] LABS: Hepatitis A IgM ABS Negative (Negative); Hepatitis A Total ABS Negative (Negative)
== END 2018-07-25 10:36 | disposition home or self-care (01) | DRG 327 ==
LOC: ERS 11:14 → 3SE 19:41 → SURG B 07-20 18:09
PROVIDERS: ADMIT Internal Medicine; ATTEND Internal Medicine
PROC: 0D164ZA Bypass Stomach to Jejunum, Percutaneous Endoscopic Approach (ICD-10-PCS; principal; 2018-07-21)
PROC: 0DB64ZZ Excision of Stomach, Percutaneous Endoscopic Approach (ICD-10-PCS; 2018-07-21)
DX: K28.7 Chronic gastrojejunal ulcer without hemorrhage or perforation (principal); K31.1 Adult hypertrophic pyloric stenosis; E87.3 Alkalosis; E44.1 Mild protein-calorie malnutrition; K56.7 Ileus, unspecified; K50.90 Crohn's disease, unspecified, without complications; E86.0 Dehydration; M06.9 Rheumatoid arthritis, unspecified; L52 Erythema nodosum; E03.9 Hypothyroidism, unspecified; Z98.890 Other specified postprocedural states; L13.9 Bullous disorder, unspecified; F41.8 Other specified anxiety disorders; Z88.0 Allergy status to penicillin; Z88.2 Allergy status to sulfonamides; Z91.040 Latex allergy status; Z68.21 Body mass index [BMI] 21.0-21.9, adult
CPT/HCPCS: 36415; 74018; 74177; 80048; 80053; 81001; 81003; 81025; 82274; 82728; 83690; 83735; 84100; 85007; 85025; 85027; 85652; 86140; 86480; 86704; 86706; 86709; 86803; 87340; 88307; 93005; 96361; 96374; 96375; C9113; J0131; J0694; J1100; J1200; J1650; J1885; J2001; J2175; J2270; J2405; J2550; J2704; J3010; J7050; P9045

== ENCOUNTER 2020-11-13 14:03 | Outpatient (CLI) | payer BC ==
--- NOTE | 2020-11-13 14:47 | BD ---
EXAM: DEXA bone density examination HISTORY: 45-year-old postmenopausal female for screening COMPARISON: None FINDINGS: L1--bone mineral density 0.869 g/sq cm; T score -1.1 L2--bone mineral density 1.041 g/sq cm; T score 0.1 L3--bone mineral density 0.950 g/sq cm; T score -1.2 L4--bone mineral density 0.959 g/sq cm; T score -0.9 Total L1-L4--bone mineral density 0.956 g/sq cm; T score -0.8 Left femoral neck--bone mineral density0.687; T score -1.5 Total proximal left femur--bone mineral density 0.852; T score -0.7 IMPRESSION: Osteopenia. This patient has a 10 year WHO fracture risk of a major osteoporotic fracture of 3.5% and of a hip fracture of 0.3%.
== END 2020-11-13 14:04 | disposition home or self-care (01) ==
LOC: BICMAMMO 14:03
PROVIDERS: ATTEND Internal Medicine Gastroenterology
DX: Z13.820 Encounter for screening for osteoporosis (principal); K50.00 Crohn's disease of small intestine without complications; M13.80 Other specified arthritis, unspecified site; M85.89 Other specified disorders of bone density and structure, multiple sites; Z98.84 Bariatric surgery status
CPT/HCPCS: 77080